=== PATIENT | female | born 1950 | race Hispanic/Latino ===

== ENCOUNTER → 2017-11-10 | Outpatient (CLI) | payer OTHER ==
[~2017-11-10] MED LIST: ALBU8.5H8 IH; ALBUMIN (HUMAN) 25% 200 ML IV SCH; ATOR10TA69 PO; BRIM5DRO4 OP; BUSP5TAB3 PO; CHOL378P PO; CHOL4PAC21 PO; CIPR-279 PO; CIPR250S5 PO; COMB5OS OU; DICL1KIT14 TP; IPRAHFA IH; LACT10SO8 PO; LATA2.5D2 OU; LEVO250T2 PO; LISI2.5T2 PO; MECL-111 PO; MECL-129 PO; ONDA4TAB10 PO; PANT40TA25 PO; PROP10TA10 PO; RIFA550T PO; ZINC220C6 PO; ZINC50TA38 PO; ZINC50TA64 PO; diclofenac 1% TP
[2017-11-10 08:29] LABS: INR 1.49 (0.85-1.15); PARTIAL THROMBOPLASTIN TIME 41.1 SEC (26.3-35.5); PROTHROMBIN TIME 15.5 SEC (9.6-11.6)
[2017-11-10 11:32] LABS: SPECIMENTYPE,BODY FLUID ASCITES
[2017-11-10 11:33] LABS: APPEARANCE BODY FLUID CLEAR (CLEAR); BODY FLUID RBC 367 /cu. mm.; BODY FLUID WBC 103 /cu. mm.; COLOR,BODY FLUID YELLOW (LT YELLOW); TOTAL VOLUME,BODY FLUID 110 mL
[2017-11-10 11:46] LABS: BF LYMPHOCYTE 49 %; BF MESOTHELIAL 35 %; BF MONOCYTE 13 %
== END | disposition home or self-care (01) ==
LOC: RAH 07:36
PROVIDERS: ATTEND Internal Medicine
DX: R18.8 Other ascites (principal); K74.60 Unspecified cirrhosis of liver; K21.9 Gastro-esophageal reflux disease without esophagitis; E11.9 Type 2 diabetes mellitus without complications; I10 Essential (primary) hypertension; E78.5 Hyperlipidemia, unspecified; Z79.01 Long term (current) use of anticoagulants; Z90.710 Acquired absence of both cervix and uterus; Z98.890 Other specified postprocedural states
CPT/HCPCS: 36415; 49083; 85610; 85730; 87071; 87205; 89051; P9046

== ENCOUNTER → 2017-11-29 | Outpatient (CLI) | payer OTHER ==
[2017-11-29 10:35] LABS: INR 1.44 (0.85-1.15); PARTIAL THROMBOPLASTIN TIME 39.2 SEC (26.3-35.5)
== END | disposition home or self-care (01) ==
LOC: RAH 09:26
PROVIDERS: ATTEND Internal Medicine
DX: R18.8 Other ascites (principal); Z79.01 Long term (current) use of anticoagulants
CPT/HCPCS: 36415; 49083; 85610; 85730; P9046

== ENCOUNTER → 2017-12-10 | Outpatient (CLI) | payer OTHER ==
[~2017-12-10] MED LIST changes: -ALBUMIN (HUMAN) 25% 200 ML IV SCH; +ALBUMIN (HUMAN) 25% 400 ML IV ONE
== END | disposition home or self-care (01) ==
LOC: RAH 08:18
PROVIDERS: ATTEND Internal Medicine
DX: R18.8 Other ascites (principal)
CPT/HCPCS: 49083; P9046

== ENCOUNTER 2017-12-20 12:28 | Emergency (ER) | payer OTHER ==
[~2017-12-20 12:28] MED LIST changes: -ALBU8.5H8 IH; -ALBUMIN (HUMAN) 25% 400 ML IV ONE; -BRIM5DRO4 OP; -CHOL378P PO; -CHOL4PAC21 PO; -CIPR-279 PO; -CIPR250S5 PO; -DICL1KIT14 TP; -LISI2.5T2 PO; -MECL-129 PO; -ONDA4TAB10 PO; -ZINC220C6 PO; -ZINC50TA64 PO
[2017-12-20 13:17] LABS: EOSINOPHILS % (AUTO) 12.7 % (0.0-8.0); HEMATOCRIT 25.9 % (36-48); LYMPHOCYTES % (AUTO) 9.9 % (21.0-51.0); MEAN CORPUSCULAR HEMOGLOBIN 33.5 pg (27.0-33.0); MEAN CORPUSCULAR HGB CONC 35.1 g/dL (32.0-36.0); MEAN CORPUSCULAR VOLUME 95.4 fL (79-99); MONOCYTES % (AUTO) 11.8 % (3.0-13.0); NEUTROPHILS % (AUTO) 63.6 % (40.0-77.0); NUCLEATED RED BLOOD CELLS 0.1 % (0.0-0.19); PLATELET COUNT (AUTO) 53 K/uL (130-400); RED BLOOD CELL COUNT(AUTO) 2.72 MIL/uL (4.00-5.50); RED CELL DISTRIBUTION WIDTH 17.4 % (11.0-15.5); WHITE BLOOD COUNT (AUTO) 2.6 K/uL (4.8-10.8)
[2017-12-20 13:19] LABS: CREATININE 2.2 mg/dL (0.5-1.5)
[2017-12-20 13:25] LABS: ALBUMIN 3.2 g/dL (3.5-5.0); BILIRUBIN,TOTAL 2.7 mg/dL (0.2-1.0)
[2017-12-20 13:34] LABS: INR 1.49 (0.85-1.15); PARTIAL THROMBOPLASTIN TIME 38.8 SEC (26.3-35.5); PROTHROMBIN TIME 15.5 SEC (9.6-11.6)
[2017-12-20 14:01] LABS: EOSINOPHILS % (MANUAL) 7 % (1-6); LYMPHOCYTES % (MANUAL) 12 % (22-44); MAN.DIFF COMMENT-IMPRESSION MANUAL DIFFERENTIAL; MONOCYTES % (MANUAL) 10 % (2-9); SEGMENTED NEUTROPHILS % 71 % (40-70)
[2017-12-20 14:02] LABS: PLATELET MORPHOLOGY COMMENT DECREASED
[2017-12-20] MEDS ORDERED: ALBUMIN (HUMAN) 25% 200 ML IV ONE (16:30)
[2017-12-20] MEDS ORDERED: ALBUMIN (HUMAN) 25% 100 ML IV ONE (17:20)
[2017-12-20] MEDS ORDERED: BENZONATATE 100 MG CAPSULE PO ONE (17:21)
== END 2017-12-20 18:34 | disposition home or self-care (01) ==
LOC: EDH 12:28
DX: R18.8 Other ascites (principal); K74.69 Other cirrhosis of liver; D61.818 Other pancytopenia; E11.22 Type 2 diabetes mellitus with diabetic chronic kidney disease; I12.9 Hypertensive chronic kidney disease with stage 1 through stage 4 chronic kidney disease, or unspecified chronic kidney disease; N18.9 Chronic kidney disease, unspecified; R79.1 Abnormal coagulation profile; Z79.4 Long term (current) use of insulin; Z88.0 Allergy status to penicillin; Z88.2 Allergy status to sulfonamides
CPT/HCPCS: 36415; 49083; 71045; 80053; 82140; 83880; 85007; 85025; 85610; 85730; 87804 ×2; 93005; 96365; 99285; P9047

== ENCOUNTER 2017-12-28 06:33 | Observation (INO) | payer OTHER ==
[~2017-12-28] VITALS: Ht 160 cm; Wt 94.3 kg
[2017-12-28 07:14] LABS: BASOPHILS % (AUTO) 2.2 % (0.0-5.0); EOSINOPHILS % (AUTO) 15.8 % (0.0-8.0); HEMATOCRIT 27.5 % (36-48); LYMPHOCYTES % (AUTO) 12.7 % (21.0-51.0); MEAN CORPUSCULAR HEMOGLOBIN 32.5 pg (27.0-33.0); MEAN CORPUSCULAR HGB CONC 34.3 g/dL (32.0-36.0); MEAN CORPUSCULAR VOLUME 94.6 fL (79-99); MONOCYTES % (AUTO) 8.7 % (3.0-13.0); NEUTROPHILS % (AUTO) 60.6 % (40.0-77.0); NUCLEATED RED BLOOD CELLS 0.1 % (0.0-0.19); PLATELET COUNT (AUTO) 67 K/uL (130-400); RED BLOOD CELL COUNT(AUTO) 2.91 MIL/uL (4.00-5.50); RED CELL DISTRIBUTION WIDTH 17.5 % (11.0-15.5); WHITE BLOOD COUNT (AUTO) 3.5 K/uL (4.8-10.8)
[2017-12-28 07:22] LABS: CREATININE 2.1 mg/dL (0.5-1.5); POTASSIUM 4.1 mmol/L (3.5-5.1)
[2017-12-28 07:28] LABS: ALBUMIN 3.3 g/dL (3.5-5.0); BILIRUBIN,TOTAL 2.5 mg/dL (0.2-1.0); TOTAL PROTEIN, SERUM 7.7 g/dL (6.0-8.3)
[2017-12-28 07:29] LABS: INR 1.37 (0.85-1.15); PARTIAL THROMBOPLASTIN TIME 35.1 SEC (26.3-35.5); PROTHROMBIN TIME 14.3 SEC (9.6-11.6)
[2017-12-28] MEDS ORDERED: ONDANSETRON HCL 4 MG/2 ML VIAL ONE (07:30)
[2017-12-28] MEDS ORDERED: MORPHINE SULFATE 4 MG/1ML SYG ONE (07:30)
[2017-12-28 08:23] LABS: PLATELET MORPHOLOGY COMMENT MARKED DECREASED
[2017-12-28] MEDS ORDERED: LEVOFLOXACIN 500 MG/D5W 100 ML 100 ML ONE (09:00)
[2017-12-28] MEDS ORDERED: METRONIDAZOLE 500MG/100ML BAG 100 ML ONE (09:01)
[2017-12-28 09:25] LABS: APPEARANCE,URINE Clear (CLEAR); BILIRUBIN,URINE Negative (NEGATIVE); COLOR,URINE Yellow (YELLOW); GLUCOSE, URINE (UA) Negative (NEGATIVE); KETONES,URINE Negative (NEGATIVE); LEUKOCYTE ESTERASE ,URINE Small (NEGATIVE); NITRATE,URINE Negative (NEGATIVE); OCCULT BLOOD,URINE Negative (NEGATIVE); PH,URINE 5.5 (5.0-8.0); PROTEIN,URINE Negative (NEGATIVE)
[2017-12-28] MEDS ORDERED: ONDANSETRON HCL 4 MG/2 ML VIAL IV PRN (09:30)
[2017-12-28] MEDS ORDERED: ACETAMINOPHEN 325 MG TAB PO PRN ×2 (09:30)
[2017-12-28] MEDS ORDERED: MAG HYDROX/AL HYDROX/SIMETH ES 30 ML SUSP UDCUP PO PRN (09:30)
[2017-12-28] MEDS ORDERED: GUAIFENESIN-DM 200/20 MG 10 ML PO PRN (09:30)
[2017-12-28] MEDS ORDERED: LACTULOSE 20 GM/30 ML UDCUP PO PRN (09:30)
[2017-12-28] MEDS ORDERED: MORPHINE SULFATE 2 MG/ML 1ML SYG IV PRN (09:30)
[2017-12-28 09:51] LABS: BACTERIA,URINE Rare /HPF (None Seen); RBC,URINE None Seen /HPF (0-1)
[2017-12-28] MEDS ORDERED: FUROSEMIDE 10 MG/ML 4ML VIAL IV SCH (12:30)
[2017-12-28] MEDS: INSULIN HUMULIN R 100 UNIT/ML 3ML SQ SCH ×3 (12:30→21:00)
[2017-12-28] MEDS ORDERED: ALBUMIN (HUMAN) 25% 200 ML IV SCH (15:15)
[2017-12-28 17:50] VITALS: BP 146/68
[2017-12-28 19:00] VITALS: BP 158/75
[2017-12-28] MEDS ORDERED: ZINC220C6 PO (19:14)
[2017-12-28] MEDS ORDERED: ONDA4TAB10 PO (19:14)
[2017-12-28] MEDS ORDERED: DiphenhydrAMINE HCL 25 MG/10 ML ELIXIR UDCUP PO PRN (22:45)
[2017-12-28] MEDS: FAMOTIDINE/PF 20 MG/2 ML VIAL IV SCH (22:51)
[2017-12-28 23:00] VITALS: BP 125/56
[2017-12-29 03:00] VITALS: BP 120/45
[2017-12-29 04:43] LABS: HEMATOCRIT 21.8 % (36-48); MEAN CORPUSCULAR HEMOGLOBIN 31.9 pg (27.0-33.0); MEAN CORPUSCULAR HGB CONC 34.1 g/dL (32.0-36.0); MEAN CORPUSCULAR VOLUME 93.6 fL (79-99); NUCLEATED RED BLOOD CELLS 0.1 % (0.0-0.19); PLATELET COUNT (AUTO) 45 K/uL (130-400); RED BLOOD CELL COUNT(AUTO) 2.33 MIL/uL (4.00-5.50); RED CELL DISTRIBUTION WIDTH 16.9 % (11.0-15.5); WHITE BLOOD COUNT (AUTO) 1.8 K/uL (4.8-10.8)
[2017-12-29 04:55] LABS: CREATININE 1.8 mg/dL (0.5-1.5); POTASSIUM 4.7 mmol/L (3.5-5.1)
[2017-12-29] MEDS: INSULIN HUMULIN R 100 UNIT/ML 3ML SQ SCH ×2 (05:59→11:30)
[2017-12-29 08:00] VITALS: BP 134/57
[2017-12-29] MEDS ORDERED: ONDANSETRON ODT 4 MG TAB PO PRN (08:45)
[2017-12-29] MEDS ORDERED: MECLIZINE HCL 25 MG TABLET PO PRN (08:45)
[2017-12-29] MEDS ORDERED: DICLOFENAC 1% TP PRN (08:45)
[2017-12-29] MEDS ORDERED: LEVOFLOXACIN 250 MG/D5W 50ML 50 ML IV SCH (09:00)
[2017-12-29] MEDS ORDERED: LACTULOSE 20 GM/30 ML UDCUP PO SCH (09:00)
[2017-12-29] MEDS ORDERED: BRIMONIDINE TARTRATE 0.2% 5 ML BOTTLE OU SCH (09:00)
[2017-12-29] MEDS ORDERED: ATORVASTATIN CALCIUM 10 MG TABLET PO SCH (09:00)
[2017-12-29] MEDS ORDERED: BUSPIRONE HCL 5 MG TABLET PO SCH (09:00)
[2017-12-29] MEDS ORDERED: RIFAXIMIN 550 MG TABLET PO SCH (09:00)
[2017-12-29] MEDS: FAMOTIDINE/PF 20 MG/2 ML VIAL IV SCH (09:26)
[2017-12-29 12:00] VITALS: BP 138/48
[2017-12-29] MEDS ORDERED: FUROSEMIDE 10 MG/ML 4ML VIAL IV SCH (12:30)
[2017-12-29 12:42] LABS: HEMATOCRIT 24.9 % (36-48)
[2017-12-29] MEDS ORDERED: LATANOPROST 2.5 ML DROPS OU SCH (21:00)
[2017-12-29] MEDS ORDERED: PROPRANOLOL HCL 10 MG TAB PO SCH (21:00)
[2017-12-29] MEDS ORDERED: TIMOLOL MALEATE 0.5% 5 ML BOTTLE OU SCH (21:00)
== END 2017-12-29 15:05 | disposition home or self-care (01) ==
LOC: EDH 06:33 → EDHIP 09:18 → 3CH 17:32
PROVIDERS: ADMIT Family Medicine; ATTEND Family Medicine
DX: K70.31 Alcoholic cirrhosis of liver with ascites (principal); I10 Essential (primary) hypertension; E11.9 Type 2 diabetes mellitus without complications; D61.818 Other pancytopenia; I25.10 Atherosclerotic heart disease of native coronary artery without angina pectoris; K80.20 Calculus of gallbladder without cholecystitis without obstruction; Z76.82 Awaiting organ transplant status
CPT/HCPCS: 36415 ×2; 49083; 76705; 80048; 80053; 81001; 82140; 82550; 82948 ×3; 83690; 84484; 85025; 85027; 85610; 85730; 93005; 96365; 96366; 96375 ×2; 96376; 99285; G0378 ×30; J1940; J1956; J2270; J2405 ×2; J3490 ×3; P9046

== ENCOUNTER 2018-01-03 18:14 | Observation (INO) | payer OTHER ==
[~2018-01-03] VITALS: Ht 157.5 cm; Wt 81.4 kg
[~2018-01-03 18:14] MED LIST changes: -LEVO250T2 PO; +ONDA4TAB10 PO; +ZINC220C6 PO; -ZINC50TA38 PO
[2018-01-03 18:54] LABS: BASOPHILS % (AUTO) 1.5 % (0.0-5.0); EOSINOPHILS % (AUTO) 14.2 % (0.0-8.0); HEMATOCRIT 26.2 % (36-48); LYMPHOCYTES % (AUTO) 12.5 % (21.0-51.0); MEAN CORPUSCULAR HEMOGLOBIN 31.9 pg (27.0-33.0); MEAN CORPUSCULAR VOLUME 93.9 fL (79-99); MONOCYTES % (AUTO) 12.2 % (3.0-13.0); NEUTROPHILS % (AUTO) 59.6 % (40.0-77.0); PLATELET COUNT (AUTO) 56 K/uL (130-400); RED BLOOD CELL COUNT(AUTO) 2.79 MIL/uL (4.00-5.50); RED CELL DISTRIBUTION WIDTH 17.1 % (11.0-15.5); WHITE BLOOD COUNT (AUTO) 2.8 K/uL (4.8-10.8)
[2018-01-03] MEDS ORDERED: ONDANSETRON HCL 4 MG/2 ML VIAL ONE (18:54)
[2018-01-03 19:09] LABS: CARBON DIOXIDE 26 mmol/L (21-32); CHLORIDE 107 mmol/L (101-111); CREATININE 2.2 mg/dL (0.5-1.5); GLOMERULAR FILTR. RATE CALC 24 mL/min (>60); GLUCOSE,RANDOM 153 mg/dL (70-105); POTASSIUM 4.6 mmol/L (3.5-5.1); SODIUM SERUM 139 mmol/L (136-145); UREA NITROGEN, BLOOD 29 mg/dL (7-18)
[2018-01-03 19:11] LABS: INR 1.49 (0.85-1.15); PROTHROMBIN TIME 15.5 SEC (9.6-11.6)
[2018-01-03 19:22] LABS: ALANINE AMINOTRANSFERASE 27 U/L (12-78); ALBUMIN 2.9 g/dL (3.5-5.0); ASPARTATE AMINOTRANSFERASE 43 U/L (10-37); BILIRUBIN,TOTAL 2.3 mg/dL (0.2-1.0); CREATINE KINASE MB < 0.5 ng/mL (0.5-3.6); CREATINE KINASE, TOTAL 66 U/L (21-232); TOTAL PROTEIN, SERUM 6.8 g/dL (6.0-8.3)
[2018-01-03 19:31] LABS: AMMONIA 95 umol/L (11-32)
[2018-01-03] MEDS ORDERED: MEROPENEM 1 GM VIAL ONE (19:36)
[2018-01-03] MEDS ORDERED: ALBUMIN (HUMAN) 25% 50 ML IV ONE (19:36)
[2018-01-03 19:43] LABS: APPEARANCE,URINE Clear (CLEAR); BILIRUBIN,URINE Negative (NEGATIVE); COLOR,URINE Yellow (YELLOW); GLUCOSE, URINE (UA) Negative (NEGATIVE); KETONES,URINE Negative (NEGATIVE); LEUKOCYTE ESTERASE ,URINE Small (NEGATIVE); NITRATE,URINE Negative (NEGATIVE); OCCULT BLOOD,URINE Negative (NEGATIVE); PROTEIN,URINE Negative (NEGATIVE); UROBILINOGEN,URINE 0.2 mg/dL (0.2-1.0)
[2018-01-03 19:52] LABS: BACTERIA,URINE Few /HPF (None Seen); RBC,URINE 0-1 /HPF (0-1); SQUAMOUS EPITHELIAL CELL,UR Few /LPF (0-2)
[2018-01-03] MEDS ORDERED: ACETAMINOPHEN EXTRA STRENGTH 500 MG TABLET ONE (20:08)
[2018-01-03 20:12] LABS: BAND NEUTROPHILS % (MANUAL) 2 % (0-2); BASOPHILS % (MANUAL) 1 % (0-2); EOSINOPHILS % (MANUAL) 14 % (1-6); LYMPHOCYTES % (MANUAL) 14 % (22-44); MAN.DIFF COMMENT-IMPRESSION MANUAL DIFFERENTIAL; MONOCYTES % (MANUAL) 8 % (2-9); SEGMENTED NEUTROPHILS % 61 % (40-70)
[2018-01-03] MEDS ORDERED: FUROSEMIDE 10 MG/ML 4ML VIAL ONE (20:40)
[2018-01-03] MEDS ORDERED: LACTULOSE 20 GM/30 ML UDCUP ONE (20:40)
[2018-01-03] MEDS ORDERED: SODIUM CHLORIDE 0.9% 1000ML 1,000 ML IV ONE (23:32)
[2018-01-03] MEDS ORDERED: FAMOTIDINE 20MG TAB 20 MG TAB ONE (23:33)
[2018-01-04] VITALS (11 sets, daily range): BP systolic 144–164; BP diastolic 63–84
[2018-01-04] MEDS: LEVOFLOXACIN 500 MG/D5W 100 ML 100 ML IV SCH (01:30)
[2018-01-04] MEDS ORDERED: POTASSIUM CHLORIDE 20MEQ/100ML 100 ML IV PRN (01:30)
[2018-01-04] MEDS ORDERED: LIDOCAINE HCL-MPF 1% 2ML VIAL IVP PRN (01:30)
[2018-01-04] MEDS ORDERED: POTASSIUM CHLORIDE 20 MEQ ERTAB PO PRN (01:30)
[2018-01-04] MEDS ORDERED: ONDANSETRON HCL 4 MG/2 ML VIAL IVP PRN (01:30)
[2018-01-04] MEDS ORDERED: MORPHINE SULFATE 2 MG/ML 1ML SYG IVP PRN ×2 (01:30)
[2018-01-04] MEDS ORDERED: DEXTROSE 50%-WATER 50 ML DISP.SYRIN IV PRN (01:30)
[2018-01-04] MEDS ORDERED: HYDRALAZINE HCL 20 MG/ML VIAL IV PRN (01:30)
[2018-01-04] MEDS ORDERED: GLUCAGON 1MG KIT 1 MG ML IM PRN (01:30)
[2018-01-04] MEDS ORDERED: POTASSIUM CHLORIDE 10% ELIXIR 20 MEQ/15 ML UDCUP PO PRN (01:30)
[2018-01-04 05:58] LABS: HEMATOCRIT 23.6 % (36-48); MEAN CORPUSCULAR HEMOGLOBIN 33.3 pg (27.0-33.0); MEAN CORPUSCULAR HGB CONC 35.8 g/dL (32.0-36.0); NUCLEATED RED BLOOD CELLS 0.1 % (0.0-0.19); PLATELET COUNT (AUTO) 49 K/uL (130-400); RED BLOOD CELL COUNT(AUTO) 2.54 MIL/uL (4.00-5.50); RED CELL DISTRIBUTION WIDTH 16.8 % (11.0-15.5); WHITE BLOOD COUNT (AUTO) 2.1 K/uL (4.8-10.8)
[2018-01-04 06:06] LABS: ALBUMIN 2.9 g/dL (3.5-5.0); BILIRUBIN,TOTAL 2.4 mg/dL (0.2-1.0); CREATININE 2.1 mg/dL (0.5-1.5); POTASSIUM 4.2 mmol/L (3.5-5.1); TOTAL PROTEIN, SERUM 6.4 g/dL (6.0-8.3)
[2018-01-04 07:30] LABS: BASOPHILS % (MANUAL) 1 % (0-2); EOSINOPHILS % (MANUAL) 9 % (1-6); LYMPHOCYTES % (MANUAL) 14 % (22-44); MAN.DIFF COMMENT-IMPRESSION MANUAL DIFFERENTIAL; MONOCYTES % (MANUAL) 13 % (2-9); SEGMENTED NEUTROPHILS % 63 % (40-70)
[2018-01-04] MEDS: INSULIN HUMULIN R 100 UNIT/ML 3ML SQ SCH ×4 (07:30→21:00)
[2018-01-04] MEDS: LACTULOSE 20 GM/30 ML UDCUP PO SCH ×3 (09:00→21:46)
[2018-01-04] MEDS: FAMOTIDINE 20MG TAB 20 MG TAB PO SCH ×2 (09:00→21:46)
[2018-01-04] MEDS ORDERED: LEVOFLOXACIN 500 MG/D5W 100 ML 100 ML ONE (10:27)
[2018-01-04] MEDS ORDERED: LACTULOSE 20 GM/30 ML UDCUP ONE (10:27)
[2018-01-04] MEDS ORDERED: FAMOTIDINE 20MG TAB 20 MG TAB ONE (10:28)
[2018-01-04 11:37] LABS: INR 1.58 (0.85-1.15); PARTIAL THROMBOPLASTIN TIME 41.1 SEC (26.3-35.5); PROTHROMBIN TIME 16.4 SEC (9.6-11.6)
[2018-01-04] MEDS ORDERED: ALBUMIN (HUMAN) 25% 400 ML IV SCH (13:00)
[2018-01-04] MEDS ORDERED: CHOL378P PO (14:48)
[2018-01-04] MEDS ORDERED: CIPR250S5 PO (14:48)
[2018-01-04] MEDS ORDERED: ZINC50TA64 PO (14:48)
[2018-01-04] MEDS ORDERED: COMB5OS OU (14:48)
[2018-01-04] MEDS ORDERED: DICL1KIT14 TP (14:48)
[2018-01-04] MEDS ORDERED: BRIM5DRO4 OP (14:48)
[2018-01-04] MEDS ORDERED: LATA2.5D2 OU (14:48)
[2018-01-04 15:15] LABS: SPECIMENTYPE,BODY FLUID ASCITES
[2018-01-04 15:16] LABS: APPEARANCE BODY FLUID SLIGHTLY CLOUDY (CLEAR); BODY FLUID RBC 1000 /cu. mm.; BODY FLUID WBC 28 /cu. mm.; COLOR,BODY FLUID YELLOW (LT YELLOW); TOTAL VOLUME,BODY FLUID 9000 mL
[2018-01-04 16:55] LABS: BF LYMPHOCYTE 67 %; BF MESOTHELIAL 5 %
[2018-01-04] MEDS: RIFAXIMIN 550 MG TABLET PO SCH (21:46)
[2018-01-05] VITALS: BP 148/71
[2018-01-05] MEDS: LEVOFLOXACIN 500 MG/D5W 100 ML 100 ML IV SCH (01:33)
[2018-01-05 03:33] LABS: HEMATOCRIT 21.4 % (36-48); MEAN CORPUSCULAR HEMOGLOBIN 31.9 pg (27.0-33.0); MEAN CORPUSCULAR HGB CONC 34.1 g/dL (32.0-36.0); MEAN CORPUSCULAR VOLUME 93.5 fL (79-99); PLATELET COUNT (AUTO) 40 K/uL (130-400); RED BLOOD CELL COUNT(AUTO) 2.29 MIL/uL (4.00-5.50); RED CELL DISTRIBUTION WIDTH 16.9 % (11.0-15.5); WHITE BLOOD COUNT (AUTO) 1.5 K/uL (4.8-10.8)
[2018-01-05 04:00] VITALS: BP 134/58
[2018-01-05 04:03] LABS: INR 2.09 (0.85-1.15); PROTHROMBIN TIME 21.6 SEC (9.6-11.6)
[2018-01-05 04:40] LABS: ALBUMIN 2.9 g/dL (3.5-5.0); BILIRUBIN,TOTAL 2.1 mg/dL (0.2-1.0); CREATININE 1.9 mg/dL (0.5-1.5); TOTAL PROTEIN, SERUM 5.2 g/dL (6.0-8.3)
[2018-01-05] MEDS: INSULIN HUMULIN R 100 UNIT/ML 3ML SQ SCH ×3 (06:40→16:30)
[2018-01-05 08:00] VITALS: BP 119/48
[2018-01-05] MEDS ORDERED: BUSPIRONE HCL 5 MG TABLET PO SCH (09:00)
[2018-01-05] MEDS ORDERED: LATANOPROST 2.5 ML DROPS OU SCH (09:00)
[2018-01-05] MEDS ORDERED: TIMOLOL OU SCH (09:00)
[2018-01-05] MEDS ORDERED: BRIMONIDINE TARTRATE OU SCH (09:00)
[2018-01-05] MEDS ORDERED: BRIMONIDINE TARTRATE 0.2% 5 ML BOTTLE OU SCH (09:00)
[2018-01-05] MEDS: FAMOTIDINE 20MG TAB 20 MG TAB PO SCH (10:59)
[2018-01-05] MEDS: RIFAXIMIN 550 MG TABLET PO SCH (10:59)
[2018-01-05] MEDS: LACTULOSE 20 GM/30 ML UDCUP PO SCH ×2 (10:59→14:43)
[2018-01-05 11:00] LABS: HEMATOCRIT 21.8 % (36-48)
[2018-01-05 12:00] VITALS: BP 136/63
[2018-01-05 16:00] VITALS: BP_SYST 122; BP_SYST 128; BP_DIAS 44; BP_DIAS 70
[2018-01-05] MEDS ORDERED: PROPRANOLOL HCL 10 MG TAB PO SCH (21:00)
[2018-01-05] MEDS ORDERED: ATORVASTATIN CALCIUM 10 MG TABLET PO SCH (21:00)
== END 2018-01-05 21:00 | disposition home or self-care (01) ==
LOC: EDH 18:14 → EDHIP 20:50 → 3AH 01-04 12:46
PROVIDERS: ADMIT Family Medicine; ATTEND Family Medicine
DX: K72.90 Hepatic failure, unspecified without coma (principal); E11.22 Type 2 diabetes mellitus with diabetic chronic kidney disease; I12.9 Hypertensive chronic kidney disease with stage 1 through stage 4 chronic kidney disease, or unspecified chronic kidney disease; N18.3 Chronic kidney disease, stage 3 (moderate); K74.60 Unspecified cirrhosis of liver; R18.8 Other ascites; D64.9 Anemia, unspecified; D69.6 Thrombocytopenia, unspecified; K59.00 Constipation, unspecified; F41.9 Anxiety disorder, unspecified
CPT/HCPCS: 36415 ×3; 36430 ×2; 49083; 71045; 74177; 80053 ×3; 81001; 82140 ×3; 82550; 82553; 82948 ×6; 84484; 85007; 85014; 85018; 85025 ×2; 85027; 85610 ×3; 85730 ×2; 86850; 86900; 86901; 86922 ×2; 87040; 87071; 87205; 88108; 88305; 88313; 89051; 93005; 96365; 96367; 99285; G0378 ×48; J1940; J1956 ×2; J2185; J2405; J7030; P9016 ×2; P9046; P9047

== ENCOUNTER 2018-01-26 18:29 | Observation (INO) | payer OTHER ==
[~2018-01-26] VITALS: Ht 160 cm; Wt 89.7 kg
[~2018-01-26 18:29] MED LIST changes: +BRIM5DRO4 OP; +CHOL378P PO; +CIPR250S5 PO; +DICL1KIT14 TP; -IPRAHFA IH; -ZINC220C6 PO; +ZINC50TA64 PO; -diclofenac 1% TP
[2018-01-26] MEDS ORDERED: MORPHINE SULFATE 4 MG/1ML SYG ONE (19:55)
[2018-01-26] MEDS ORDERED: ONDANSETRON HCL MDV 20ML 2 MG/ML VIAL ONE (19:56)
[2018-01-26 20:14] LABS: BASOPHILS % (AUTO) 1.1 % (0.0-5.0); EOSINOPHILS % (AUTO) 9.1 % (0.0-8.0); HEMATOCRIT 31.6 % (36-48); LYMPHOCYTES % (AUTO) 6.9 % (21.0-51.0); MEAN CORPUSCULAR HEMOGLOBIN 32.1 pg (27.0-33.0); MEAN CORPUSCULAR HGB CONC 34.4 g/dL (32.0-36.0); MEAN CORPUSCULAR VOLUME 93.4 fL (79-99); MONOCYTES % (AUTO) 6.8 % (3.0-13.0); NEUTROPHILS % (AUTO) 76.1 % (40.0-77.0); PLATELET COUNT (AUTO) 51 K/uL (130-400); RED BLOOD CELL COUNT(AUTO) 3.38 MIL/uL (4.00-5.50); RED CELL DISTRIBUTION WIDTH 18.8 % (11.0-15.5); WHITE BLOOD COUNT (AUTO) 3.4 K/uL (4.8-10.8)
[2018-01-26 20:26] LABS: POTASSIUM 4.3 mmol/L (3.5-5.1)
[2018-01-26 20:30] LABS: ALBUMIN 3.2 g/dL (3.5-5.0); BILIRUBIN,TOTAL 4.4 mg/dL (0.2-1.0); TOTAL PROTEIN, SERUM 7.3 g/dL (6.0-8.3)
[2018-01-26 20:36] LABS: PLATELET MORPHOLOGY COMMENT DECREASED
[2018-01-26 20:46] LABS: APPEARANCE,URINE Cloudy (CLEAR); BILIRUBIN,URINE Negative (NEGATIVE); COLOR,URINE Yellow (YELLOW); GLUCOSE, URINE (UA) Negative (NEGATIVE); KETONES,URINE Negative (NEGATIVE); LEUKOCYTE ESTERASE ,URINE Small (NEGATIVE); NITRATE,URINE Negative (NEGATIVE); OCCULT BLOOD,URINE Negative (NEGATIVE); PH,URINE 5.5 (5.0-8.0); PROTEIN,URINE Negative (NEGATIVE); UROBILINOGEN,URINE 0.2 mg/dL (0.2-1.0)
[2018-01-26 20:55] LABS: BACTERIA,URINE Few /HPF (None Seen); RBC,URINE None Seen /HPF (0-1); WBC,URINE 0-1 /HPF (0-1)
[2018-01-27] VITALS (10 sets, daily range): BP systolic 134–161; BP diastolic 51–96
[2018-01-27] MEDS ORDERED: POTASSIUM CHLORIDE 20 MEQ ERTAB PO PRN (01:00)
[2018-01-27] MEDS ORDERED: ACETAMINOPHEN 325 MG TAB PO PRN (01:00)
[2018-01-27] MEDS ORDERED: POTASSIUM CHLORIDE 20MEQ/100ML 100 ML IV PRN (01:00)
[2018-01-27] MEDS ORDERED: POTASSIUM CHLORIDE 10% ELIXIR 20 MEQ/15 ML UDCUP PO PRN (01:00)
[2018-01-27] MEDS ORDERED: LIDOCAINE HCL-MPF 1% 2ML VIAL IVP PRN (01:00)
[2018-01-27] MEDS ORDERED: ONDANSETRON HCL MDV 20ML 2 MG/ML VIAL IV PRN (01:00)
[2018-01-27] MEDS ORDERED: LEVOFLOXACIN 500 MG/D5W 100 ML 100 ML IV SCH (01:00)
[2018-01-27] MEDS ORDERED: LEVOFLOXACIN 500 MG/D5W 100 ML 100 ML ONE (01:04)
[2018-01-27] MEDS ORDERED: ACETAMINOPHEN 325 MG TAB ONE (01:30)
[2018-01-27] MEDS: INSULIN HUMULIN R 100 UNIT/ML 3ML SQ SCH ×2 (06:05→11:30)
[2018-01-27 06:13] LABS: INR 1.71 (0.85-1.15); PROTHROMBIN TIME 17.8 SEC (9.6-11.6)
[2018-01-27] MEDS ORDERED: ALBU8.5H8 IH (08:33)
[2018-01-27] MEDS ORDERED: LISI2.5T2 PO (08:33)
[2018-01-27] MEDS ORDERED: CIPR-279 PO (08:37)
[2018-01-27] MEDS ORDERED: CHOL4PAC21 PO (08:37)
[2018-01-27] MEDS ORDERED: MECL-129 PO (08:37)
[2018-01-27] MEDS ORDERED: PANTOPRAZOLE SODIUM 40 MG TABLET.DR PO SCH (09:00)
[2018-01-27] MEDS ORDERED: ALBUMIN (HUMAN) 25% 100 ML IV SCH (10:15)
[2018-01-27] MEDS ORDERED: ALBUTEROL SULFATE 0.083% 2.5 MG/3 ML INH IH PRN (10:30)
[2018-01-27] MEDS ORDERED: ALBUMIN (HUMAN) 25% 200 ML IV SCH (12:30)
[2018-01-27 13:46] LABS: SPECIMENTYPE,BODY FLUID PARACENTESIS
[2018-01-27 13:47] LABS: APPEARANCE BODY FLUID CLEAR (CLEAR); BODY FLUID WBC 1660 /cu. mm.; COLOR,BODY FLUID YELLOW (LT YELLOW); TOTAL VOLUME,BODY FLUID 9500 mL
[2018-01-27 13:48] LABS: BODY FLUID RBC 2350 /cu. mm.
[2018-01-27 14:11] LABS: BF LYMPHOCYTE 4 %; BF MESOTHELIAL 18 %; BF MONOCYTE 13 %
[2018-01-27] MEDS ORDERED: BRIMONIDINE TARTRATE 0.2% 5 ML BOTTLE OU SCH (21:00)
[2018-01-27] MEDS ORDERED: BUSPIRONE HCL 5 MG TABLET PO SCH (21:00)
[2018-01-27] MEDS ORDERED: LATANOPROST 2.5 ML DROPS OU SCH (21:00)
[2018-01-27] MEDS ORDERED: RIFAXIMIN 550 MG TABLET PO SCH (21:00)
[2018-01-27] MEDS ORDERED: LACTULOSE 20 GM/30 ML UDCUP PO SCH (21:00)
[2018-01-27] MEDS ORDERED: ATORVASTATIN CALCIUM 10 MG TABLET PO SCH ×2 (21:00)
[2018-01-27] MEDS ORDERED: PROPRANOLOL HCL 10 MG TAB PO SCH (21:00)
[2018-01-27] MEDS ORDERED: CHOLESTYRAMINE PACKET 4 GM PACKET PO SCH (21:00)
[2018-01-27] MEDS ORDERED: TIMOLOL MALEATE 0.5% 5 ML BOTTLE OU SCH (21:00)
[2018-01-27] MEDS ORDERED: DICLO TP SCH (21:00)
[2018-01-28] MEDS ORDERED: LISINOPRIL 2.5 MG TABLET PO SCH (09:00)
[2018-01-28] MEDS ORDERED: PANTOPRAZOLE SODIUM 40 MG TABLET.DR PO SCH (09:00)
[2018-01-28] MEDS ORDERED: LEVOFLOXACIN 500 MG TABLET PO SCH (09:00)
== END 2018-01-27 19:10 | disposition home or self-care (01) ==
LOC: EDH 18:29 → EDHIP 23:45 → 3CH 01-27 01:50
PROVIDERS: ADMIT Internal Medicine; ATTEND Internal Medicine
DX: R18.8 Other ascites (principal); K74.60 Unspecified cirrhosis of liver; N39.0 Urinary tract infection, site not specified; I25.10 Atherosclerotic heart disease of native coronary artery without angina pectoris; I12.9 Hypertensive chronic kidney disease with stage 1 through stage 4 chronic kidney disease, or unspecified chronic kidney disease; N18.9 Chronic kidney disease, unspecified; E11.22 Type 2 diabetes mellitus with diabetic chronic kidney disease; Z90.710 Acquired absence of both cervix and uterus; N17.9 Acute kidney failure, unspecified; D61.818 Other pancytopenia; I85.00 Esophageal varices without bleeding; F41.9 Anxiety disorder, unspecified
CPT/HCPCS: 36415 ×2; 49083; 71045; 74176; 80053; 81001; 82150; 82948 ×3; 83690; 85025; 85610; 87071; 87205; 87804 ×2; 89051; 93005; 96365; 99285; G0378 ×19; J1956; J2270; P9046 ×2

== ENCOUNTER → 2018-02-07 | Outpatient (CLI) | payer OTHER ==
[~2018-02-07] MED LIST changes: +ALBU8.5H8 IH; +ALBUMIN (HUMAN) 25% 200 ML IV SCH; -BRIM5DRO4 OP; -CHOL378P PO; +CHOL4PAC21 PO; +CIPR-279 PO; -CIPR250S5 PO; +LIDOCAINE HCL 1% 20 ML VIAL ONE; +LISI2.5T2 PO; -MECL-111 PO; +MECL-129 PO
[2018-02-07 13:20] LABS: INR 1.49 (0.85-1.15); PROTHROMBIN TIME 15.5 SEC (9.6-11.6)
== END | disposition home or self-care (01) ==
LOC: RAH 12:25
PROVIDERS: ATTEND Internal Medicine
DX: R18.8 Other ascites (principal); Z88.0 Allergy status to penicillin; Z88.2 Allergy status to sulfonamides; Z88.8 Allergy status to other drugs, medicaments and biological substances; Z79.01 Long term (current) use of anticoagulants
CPT/HCPCS: 36415; 49083; 85610; 85730; P9046

== ENCOUNTER → 2018-02-21 | Outpatient (CLI) | payer OTHER ==
[2018-02-21 09:24] LABS: INR 1.58 (0.85-1.15); PARTIAL THROMBOPLASTIN TIME 42.1 SEC (26.3-35.5); PROTHROMBIN TIME 16.4 SEC (9.6-11.6)
== END | disposition home or self-care (01) ==
LOC: RAH 08:23
PROVIDERS: ATTEND Internal Medicine
DX: R18.8 Other ascites (principal); K74.60 Unspecified cirrhosis of liver
CPT/HCPCS: 36415; 49083; 85610; 85730; P9046

== ENCOUNTER → 2018-03-04 | Outpatient (CLI) | payer OTHER ==
[~2018-03-04] MED LIST changes: -ALBUMIN (HUMAN) 25% 200 ML IV SCH; -LIDOCAINE HCL 1% 20 ML VIAL ONE
== END | disposition home or self-care (01) ==
LOC: RAH 14:01
PROVIDERS: ATTEND Internal Medicine
DX: Z12.31 Encounter for screening mammogram for malignant neoplasm of breast (principal)
CPT/HCPCS: 77067

== ENCOUNTER → 2018-03-08 | Outpatient (CLI) | payer OTHER | END | disposition home or self-care (01) | LOC: RAH 10:08 | PROVIDERS: ATTEND Internal Medicine | DX: G31.9 Degenerative disease of nervous system, unspecified (principal); G44.059 Short lasting unilateral neuralgiform headache with conjunctival injection and tearing (SUNCT), not intractable | CPT/HCPCS: 70450 ==

== ENCOUNTER → 2018-03-11 | Outpatient (CLI) | payer OTHER ==
[~2018-03-11] MED LIST changes: +ALBUMIN (HUMAN) 25% 200 ML IV SCH
[2018-03-11 09:12] LABS: INR 1.53 (0.85-1.15); PARTIAL THROMBOPLASTIN TIME 43.1 SEC (26.3-35.5); PROTHROMBIN TIME 15.9 SEC (9.6-11.6)
[2018-03-11 13:19] LABS: APPEARANCE BODY FLUID CLEAR (CLEAR); BODY FLUID WBC 127 /cu. mm.; COLOR,BODY FLUID YELLOW (LT YELLOW); SPECIMENTYPE,BODY FLUID ASCITES; TOTAL VOLUME,BODY FLUID 9600 mL
[2018-03-11 13:20] LABS: BODY FLUID RBC 2819 /cu. mm.
[2018-03-11 14:13] LABS: BF LYMPHOCYTE 61 %; BF MESOTHELIAL 12 %; BF MONOCYTE 14 %
== END | disposition home or self-care (01) ==
LOC: DAH 08:11
PROVIDERS: ATTEND Internal Medicine
DX: R18.8 Other ascites (principal); K74.60 Unspecified cirrhosis of liver; Z88.0 Allergy status to penicillin; Z88.2 Allergy status to sulfonamides; Z88.8 Allergy status to other drugs, medicaments and biological substances; K21.9 Gastro-esophageal reflux disease without esophagitis; E78.5 Hyperlipidemia, unspecified; Z90.710 Acquired absence of both cervix and uterus; Z98.890 Other specified postprocedural states; Z68.36 Body mass index [BMI] 36.0-36.9, adult; E11.39 Type 2 diabetes mellitus with other diabetic ophthalmic complication; H40.1132 Primary open-angle glaucoma, bilateral, moderate stage; I35.0 Nonrheumatic aortic (valve) stenosis; I45.10 Unspecified right bundle-branch block; I12.9 Hypertensive chronic kidney disease with stage 1 through stage 4 chronic kidney disease, or unspecified chronic kidney disease; E11.22 Type 2 diabetes mellitus with diabetic chronic kidney disease; N18.9 Chronic kidney disease, unspecified; Z79.84 Long term (current) use of oral hypoglycemic drugs
CPT/HCPCS: 36415; 49083; 85610; 85730; 87071; 87205; 89051; P9046

== ENCOUNTER 2018-07-27 17:31 | Observation (INO) | payer OTHER ==
[~2018-07-27] VITALS: Ht 154.9 cm; Wt 63.0 kg
[~2018-07-27 17:31] MED LIST changes: -ALBUMIN (HUMAN) 25% 200 ML IV SCH
[2018-07-27 18:35] LABS: BASOPHILS % (AUTO) 0.6 % (0.0-5.0); EOSINOPHILS % (AUTO) 0.5 % (0.0-8.0); LYMPHOCYTES % (AUTO) 0.7 % (21.0-51.0); MEAN CORPUSCULAR HEMOGLOBIN 31.4 pg (27.0-33.0); MEAN CORPUSCULAR HGB CONC 33.6 g/dL (32.0-36.0); MEAN CORPUSCULAR VOLUME 93.4 fL (79-99); MONOCYTES % (AUTO) 8.2 % (3.0-13.0); NUCLEATED RED BLOOD CELLS 0.2 % (0.0-0.19); PLATELET COUNT (AUTO) 368 K/uL (130-400); RED BLOOD CELL COUNT(AUTO) 2.24 MIL/uL (4.00-5.50); RED CELL DISTRIBUTION WIDTH 18.4 % (11.0-15.5)
[2018-07-27 18:43] LABS: HEMATOCRIT 20.9 % (36-48)
[2018-07-27 18:45] LABS: CREATININE 1.5 mg/dL (0.5-1.5); POTASSIUM 5.3 mmol/L (3.5-5.1)
[2018-07-27 18:49] LABS: INR 1.05 (0.85-1.15); PARTIAL THROMBOPLASTIN TIME 33.2 SEC (26.3-35.5)
[2018-07-27 18:55] LABS: ALBUMIN 2.8 g/dL (3.5-5.0); BILIRUBIN,TOTAL 0.3 mg/dL (0.2-1.0); TOTAL PROTEIN, SERUM 6.5 g/dL (6.0-8.3)
[2018-07-27 18:58] LABS: APPEARANCE,URINE Clear (CLEAR); BILIRUBIN,URINE Negative (NEGATIVE); COLOR,URINE Yellow (YELLOW); GLUCOSE, URINE (UA) Negative (NEGATIVE); KETONES,URINE Negative (NEGATIVE); LEUKOCYTE ESTERASE ,URINE Trace (NEGATIVE); NITRATE,URINE Negative (NEGATIVE); OCCULT BLOOD,URINE Negative (NEGATIVE); PROTEIN,URINE POS 2+ (NEGATIVE); UROBILINOGEN,URINE 0.2 mg/dL (0.2-1.0)
[2018-07-27 19:38] LABS: BACTERIA,URINE Rare /HPF (None Seen); RBC,URINE 0-1 /HPF (0-1)
[2018-07-27 19:40] LABS: SQUAMOUS EPITHELIAL CELL,UR Few /HPF (0-2)
[2018-07-27 19:42] LABS: TRANSITIONAL EPI CELLS,URINE Few /HPF (None Seen)
[2018-07-27 23:25] VITALS: BP 191/76
[2018-07-28] MEDS ORDERED: TACR1CAP18 PO (00:42)
[2018-07-28] MEDS ORDERED: MYCO250C36 PO (00:43)
[2018-07-28] MEDS ORDERED: PRED5POW11 MC (00:45)
[2018-07-28] MEDS ORDERED: PREDNISOLONE PO (00:50)
[2018-07-28] MEDS ORDERED: VALGDS450 PO (00:52)
[2018-07-28] MEDS ORDERED: ASPI-1197 PO (00:58)
[2018-07-28] MEDS ORDERED: GLIP5TAB11 PO (00:59)
[2018-07-28] MEDS ORDERED: CLONIDINE HCL 0.1 MG TABLET ONE (01:12)
[2018-07-28] MEDS ORDERED: CLONIDINE HCL 0.1 MG TABLET PO PRN (01:15)
[2018-07-28] MEDS ORDERED: HYDRALAZINE HCL 20 MG/ML VIAL IV SCH (02:45)
[2018-07-28 04:00] VITALS: BP 187/75
[2018-07-28] MEDS ORDERED: ONDANSETRON ODT 4 MG TAB PO PRN (06:30)
[2018-07-28] MEDS ORDERED: MECLIZINE HCL 25 MG TABLET PO PRN (06:30)
[2018-07-28] MEDS ORDERED: HYDRALAZINE HCL 25 MG TABLET PO PRN (07:00)
[2018-07-28 07:25] LABS: BASOPHILS % (AUTO) 0.4 % (0.0-5.0); EOSINOPHILS % (AUTO) 2.7 % (0.0-8.0); HEMATOCRIT 29.8 % (36-48); LYMPHOCYTES % (AUTO) 2.2 % (21.0-51.0); MEAN CORPUSCULAR HGB CONC 33.8 g/dL (32.0-36.0); MEAN CORPUSCULAR VOLUME 91.5 fL (79-99); MONOCYTES % (AUTO) 12.5 % (3.0-13.0); NEUTROPHILS % (AUTO) 82.2 % (40.0-77.0); PLATELET COUNT (AUTO) 233 K/uL (130-400); RED BLOOD CELL COUNT(AUTO) 3.26 MIL/uL (4.00-5.50); RED CELL DISTRIBUTION WIDTH 17.1 % (11.0-15.5)
[2018-07-28 07:30] VITALS: BP 196/59
[2018-07-28 07:37] LABS: INR 1.05 (0.85-1.15); PARTIAL THROMBOPLASTIN TIME 28.2 SEC (26.3-35.5)
[2018-07-28 07:40] LABS: ALBUMIN 2.6 g/dL (3.5-5.0); BILIRUBIN,TOTAL 0.5 mg/dL (0.2-1.0); CREATININE 1.5 mg/dL (0.5-1.5); POTASSIUM 4.8 mmol/L (3.5-5.1); TOTAL PROTEIN, SERUM 6.2 g/dL (6.0-8.3)
[2018-07-28] MEDS: TIMOLOL MALEATE 0.5% 5 ML BOTTLE OP SCH ×2 (08:42→09:10)
[2018-07-28] MEDS: BRIMONIDINE TARTRATE 0.2% 5 ML BOTTLE OU SCH ×2 (08:42→09:10)
[2018-07-28] MEDS: PANTOPRAZOLE SODIUM 40 MG TABLET.DR PO SCH ×2 (08:43→08:46)
[2018-07-28] MEDS ORDERED: LISINOPRIL 2.5 MG TABLET PO SCH (09:00)
[2018-07-28] MEDS ORDERED: **HM** DICLOFENAC GEL TP SCH (09:00)
[2018-07-28] MEDS ORDERED: LEVOFLOXACIN 500 MG TABLET PO SCH (09:00)
[2018-07-28] MEDS ORDERED: BUSPIRONE HCL 5 MG TABLET PO SCH (09:00)
[2018-07-28] MEDS ORDERED: CHOLESTYRAMINE PACKET 4 GM PACKET PO SCH (09:00)
[2018-07-28] MEDS ORDERED: RIFAXIMIN 550 MG TABLET PO SCH (09:00)
[2018-07-28] MEDS ORDERED: LACTULOSE 20 GM/30 ML UDCUP PO SCH (09:00)
[2018-07-28] MEDS ORDERED: ZINC OXIDE PO SCH (09:00)
[2018-07-28] MEDS ORDERED: SODIUM POLYSTYRENE SULFONATE 15 GM/60 ML ML PO SCH (09:00)
[2018-07-28 11:08] VITALS: BP 183/68
[2018-07-28] MEDS ORDERED: ATORVASTATIN CALCIUM 10 MG TABLET PO SCH (21:00)
[2018-07-28] MEDS ORDERED: PROPRANOLOL HCL 10 MG TAB PO SCH (21:00)
[2018-07-28] MEDS ORDERED: LATANOPROST 2.5 ML DROPS OU SCH (21:00)
== END 2018-07-28 14:30 | disposition home or self-care (01) ==
LOC: EDH 17:31 → EDHIP 19:55 → 3DH 21:59
PROVIDERS: ADMIT Hospitalist; ATTEND Hospitalist
DX: D64.9 Anemia, unspecified (principal); I25.10 Atherosclerotic heart disease of native coronary artery without angina pectoris; I10 Essential (primary) hypertension; R18.8 Other ascites; F41.9 Anxiety disorder, unspecified; E11.9 Type 2 diabetes mellitus without complications; K74.60 Unspecified cirrhosis of liver; Z80.0 Family history of malignant neoplasm of digestive organs; Z80.8 Family history of malignant neoplasm of other organs or systems; Z82.5 Family history of asthma and other chronic lower respiratory diseases; Z83.3 Family history of diabetes mellitus; Z82.0 Family history of epilepsy and other diseases of the nervous system; Z82.49 Family history of ischemic heart disease and other diseases of the circulatory system; Z82.3 Family history of stroke; Z79.84 Long term (current) use of oral hypoglycemic drugs; Z94.4 Liver transplant status; Z88.0 Allergy status to penicillin
CPT/HCPCS: 36415 ×2; 36430 ×2; 74176; 80053 ×2; 81001; 82270; 82948 ×2; 83690; 84484; 85025 ×2; 85610 ×2; 85730 ×2; 86850; 86900; 86901; 86922 ×2; 93005; 99285; G0378 ×19; J0360; P9016 ×2

== ENCOUNTER 2018-08-07 19:12 | Emergency (ER) | payer OTHER ==
[~2018-08-07 19:12] MED LIST changes: +ASPI-1197 PO; +GLIP5TAB11 PO; +MYCO250C36 PO; +PREDNISOLONE PO; +TACR1CAP18 PO; +VALGDS450 PO
[2018-08-07 19:58] LABS: BASOPHILS % (AUTO) 0.2 % (0.0-5.0); EOSINOPHILS % (AUTO) 5.1 % (0.0-8.0); HEMATOCRIT 30.6 % (36-48); LYMPHOCYTES % (AUTO) 0.8 % (21.0-51.0); MEAN CORPUSCULAR HEMOGLOBIN 30.4 pg (27.0-33.0); MEAN CORPUSCULAR HGB CONC 32.7 g/dL (32.0-36.0); MEAN CORPUSCULAR VOLUME 92.9 fL (79-99); MONOCYTES % (AUTO) 10.7 % (3.0-13.0); NEUTROPHILS % (AUTO) 83.2 % (40.0-77.0); PLATELET COUNT (AUTO) 379 K/uL (130-400); RED BLOOD CELL COUNT(AUTO) 3.29 MIL/uL (4.00-5.50); WHITE BLOOD COUNT (AUTO) 4.4 K/uL (4.8-10.8)
[2018-08-07 20:07] LABS: CREATININE 1.8 mg/dL (0.5-1.5); POTASSIUM 5.2 mmol/L (3.5-5.1)
[2018-08-07 20:16] LABS: ALBUMIN 2.8 g/dL (3.5-5.0); BILIRUBIN,TOTAL 0.6 mg/dL (0.2-1.0); TOTAL PROTEIN, SERUM 6.6 g/dL (6.0-8.3)
[2018-08-07 20:36] LABS: APPEARANCE,URINE Clear (CLEAR); BILIRUBIN,URINE Negative (NEGATIVE); COLOR,URINE Yellow (YELLOW); GLUCOSE, URINE (UA) Negative (NEGATIVE); KETONES,URINE Negative (NEGATIVE); LEUKOCYTE ESTERASE ,URINE Negative (NEGATIVE); NITRATE,URINE Negative (NEGATIVE); OCCULT BLOOD,URINE Negative (NEGATIVE); PH,URINE 5.5 (5.0-8.0); PROTEIN,URINE 300 (NEGATIVE); UROBILINOGEN,URINE 0.2 mg/dL (0.2-1.0)
[2018-08-07] MEDS ORDERED: CLONIDINE HCL 0.1 MG TABLET ONE (20:44)
[2018-08-07 20:48] LABS: BACTERIA,URINE Few /HPF (None Seen); RBC,URINE 0-1 /HPF (0-1); SQUAMOUS EPITHELIAL CELL,UR Rare /HPF (0-2); WBC,URINE 0-1 /HPF (0-1)
[2018-08-07] MEDS ORDERED: FUROSEMIDE 10 MG/ML 4ML VIAL ONE (22:47)
[2018-08-07] MEDS ORDERED: FUROSEMIDE 10 MG/ML 2ML VIAL ONE (22:48)
[2018-08-07] MEDS ORDERED: NITROGLYCERIN 1GM/1 INCH PACKET TD ONE (22:48)
== END 2018-08-08 01:02 | disposition home or self-care (01) ==
LOC: EDH 19:12
DX: I16.0 Hypertensive urgency (principal); I10 Essential (primary) hypertension; E11.9 Type 2 diabetes mellitus without complications; Z88.2 Allergy status to sulfonamides; Z88.0 Allergy status to penicillin; Z88.1 Allergy status to other antibiotic agents; Z88.8 Allergy status to other drugs, medicaments and biological substances; Z94.4 Liver transplant status; Z90.710 Acquired absence of both cervix and uterus
CPT/HCPCS: 36415; 71045; 80053; 81001; 82550; 83880; 84484; 85025; 93005; 96374; 99285; J1940 ×2

== ENCOUNTER 2019-01-28 16:28 | Emergency (ER) | payer OTHER ==
[2019-01-28 17:41] LABS: BASOPHILS % (AUTO) 0.7 % (0.0-5.0); EOSINOPHILS % (AUTO) 2.7 % (0.0-8.0); HEMATOCRIT 25.7 % (36-48); LYMPHOCYTES % (AUTO) 16.9 % (21.0-51.0); MEAN CORPUSCULAR HEMOGLOBIN 34.6 pg (27.0-33.0); MEAN CORPUSCULAR HGB CONC 34.3 g/dL (32.0-36.0); MEAN CORPUSCULAR VOLUME 101.1 fL (79-99); MONOCYTES % (AUTO) 7.4 % (3.0-13.0); NEUTROPHILS % (AUTO) 72.3 % (40.0-77.0); NUCLEATED RED BLOOD CELLS 0.1 % (0.0-0.19); PLATELET COUNT (AUTO) 293 K/uL (130-400); RED BLOOD CELL COUNT(AUTO) 2.55 MIL/uL (4.00-5.50); RED CELL DISTRIBUTION WIDTH 13.4 % (11.0-15.5); WHITE BLOOD COUNT (AUTO) 6.2 K/uL (4.8-10.8)
[2019-01-28 17:43] LABS: CREATININE 1.8 mg/dL (0.5-1.5); POTASSIUM 4.3 mmol/L (3.5-5.1)
[2019-01-28 17:48] LABS: ALBUMIN 3.4 g/dL (3.5-5.0); BILIRUBIN,TOTAL 0.5 mg/dL (0.2-1.0); TOTAL PROTEIN, SERUM 7.5 g/dL (6.0-8.3)
[2019-01-28 18:03] LABS: B-TYPE NATRIURETIC PEPTIDE 140 pg/mL (0-100)
== END 2019-01-28 18:51 | disposition home or self-care (01) ==
LOC: EDH 16:28
DX: D64.9 Anemia, unspecified (principal); R06.00 Dyspnea, unspecified; R11.2 Nausea with vomiting, unspecified; E11.9 Type 2 diabetes mellitus without complications; F41.9 Anxiety disorder, unspecified; Z88.0 Allergy status to penicillin; Z88.2 Allergy status to sulfonamides; Z88.1 Allergy status to other antibiotic agents
CPT/HCPCS: 36415; 71045; 80053; 82550; 83880; 84484; 85025; 93005

== ENCOUNTER → 2019-03-02 | Outpatient (CLI) | payer OTHER | END | disposition home or self-care (01) | LOC: RAH 12:30 | PROVIDERS: ATTEND Internal Medicine | DX: R05 Cough (principal); I70.0 Atherosclerosis of aorta; M47.815 Spondylosis without myelopathy or radiculopathy, thoracolumbar region; Z90.49 Acquired absence of other specified parts of digestive tract | CPT/HCPCS: 71046 ==

== ENCOUNTER 2019-03-09 11:27 | Observation (INO) | payer OTHER ==
[~2019-03-09] VITALS: Ht 154.9 cm; Wt 62.6 kg
[2019-03-09 12:26] LABS: BASOPHILS % (AUTO) 1.2 % (0.0-5.0); EOSINOPHILS % (AUTO) 3.7 % (0.0-8.0); LYMPHOCYTES % (AUTO) 10.1 % (21.0-51.0); MEAN CORPUSCULAR HEMOGLOBIN 33.4 pg (27.0-33.0); MEAN CORPUSCULAR HGB CONC 34.1 g/dL (32.0-36.0); MONOCYTES % (AUTO) 10.6 % (3.0-13.0); NEUTROPHILS % (AUTO) 74.4 % (40.0-77.0); PLATELET COUNT (AUTO) 408 K/uL (130-400); RED BLOOD CELL COUNT(AUTO) 2.09 MIL/uL (4.00-5.50); RED CELL DISTRIBUTION WIDTH 13.7 % (11.0-15.5); WHITE BLOOD COUNT (AUTO) 9.1 K/uL (4.8-10.8)
[2019-03-09 12:40] LABS: INR 1.04 (0.85-1.15); PARTIAL THROMBOPLASTIN TIME 31.8 SEC (26.3-35.5); PROTHROMBIN TIME 10.9 SEC (9.6-11.6)
[2019-03-09 12:43] LABS: ALBUMIN 2.5 g/dL (3.5-5.0); BILIRUBIN,TOTAL 0.3 mg/dL (0.2-1.0); HEMATOCRIT 20.5 % (36-48); TOTAL PROTEIN, SERUM 6.4 g/dL (6.0-8.3)
[2019-03-09 12:46] LABS: POTASSIUM 2.9 mmol/L (3.5-5.1)
[2019-03-09] MEDS ORDERED: POTASSIUM CHLORIDE 20 MEQ ERTAB PO ONE (12:51)
[2019-03-09] MEDS ORDERED: ACETAMINOPHEN 325 MG TAB PO PRN ×2 (13:45)
[2019-03-09] MEDS ORDERED: DIPHENHYDRAMINE HCL 25 MG CAPSULE PO SCH ×2 (13:45→20:30)
[2019-03-09] MEDS ORDERED: ONDANSETRON HCL 4 MG/2 ML VIAL IV PRN (13:45)
[2019-03-09] MEDS ORDERED: ACETAMINOPHEN 325 MG TAB PO SCH (13:45)
[2019-03-09 16:07] VITALS: BP 109/56
[2019-03-09] MEDS ORDERED: BUME1TAB12 PO (18:47)
[2019-03-09] MEDS ORDERED: TACR1CAP10 PO (18:47)
[2019-03-09] MEDS ORDERED: CARV25TA PO (18:47)
[2019-03-09] MEDS ORDERED: FLUD0.1T2 PO (18:47)
[2019-03-09] MEDS ORDERED: AEC81 PO (18:47)
[2019-03-09] MEDS ORDERED: MYCO250C7 PO (18:47)
[2019-03-09] MEDS ORDERED: NIFE30TA91 PO (18:47)
[2019-03-09] MEDS ORDERED: CHOL200074 PO (18:47)
[2019-03-09] MEDS ORDERED: PANT40TA25 PO (18:47)
[2019-03-09] MEDS ORDERED: BUSP10TA3 PO (18:47)
[2019-03-09] MEDS ORDERED: CETI10TA86 PO (18:47)
[2019-03-09] MEDS ORDERED: NIFE30TA98 PO (18:57)
[2019-03-09] MEDS ORDERED: CHOL200013 PO (18:57)
[2019-03-09 20:00] VITALS: BP 174/62
[2019-03-09] MEDS ORDERED: LATA7.5D OP (20:24)
[2019-03-09] MEDS ORDERED: BRIM5DRO OP (20:24)
[2019-03-09] MEDS: FAMOTIDINE/PF 20 MG/2 ML VIAL IV SCH (21:01)
[2019-03-09] MEDS ORDERED: SODIUM CHLORIDE 0.9% 500ML 500 ML IV ONE (21:20)
[2019-03-09] MEDS ORDERED: FERR-82 PO (23:09)
[2019-03-09] MEDS ORDERED: TACROLIMUS 1 MG CAPSULE PO SCH (23:15)
[2019-03-09] MEDS: POTASSIUM CHLORIDE 20 MEQ ERTAB PO SCH (23:21)
[2019-03-10 00:03] VITALS: BP 153/59
[2019-03-10 04:22] VITALS: BP 119/52
[2019-03-10] MEDS ORDERED: ALBUTEROL SULFATE 0.083% 2.5 MG/3 ML INH IH PRN (06:30)
[2019-03-10 07:47] VITALS: BP 172/65
[2019-03-10] MEDS ORDERED: BRIMONIDINE TARTRATE 0.2% 5 ML BOTTLE OP SCH (09:00)
[2019-03-10] MEDS ORDERED: BUMETANIDE 1 MG TAB PO SCH (09:00)
[2019-03-10] MEDS ORDERED: **HM** VIT D3 2000 UNITS PO SCH (09:00)
[2019-03-10] MEDS ORDERED: CARVEDILOL 25 MG TABLET PO SCH (09:00)
[2019-03-10] MEDS ORDERED: NIFEDIPINE ER 30 MG TAB PO SCH (09:00)
[2019-03-10] MEDS ORDERED: MYCOPHENOLATE MOFETIL 250 MG CAPSULE PO SCH (09:00)
[2019-03-10] MEDS ORDERED: CETIRIZINE HCL 5 MG TABLET PO SCH (09:00)
[2019-03-10] MEDS ORDERED: CHOLESTYRAMINE PACKET 4 GM PACKET PO SCH (09:00)
[2019-03-10] MEDS ORDERED: TACROLIMUS 1 MG CAPSULE PO SCH (09:00)
[2019-03-10] MEDS ORDERED: ASPIRIN 81 MG EC TAB PO SCH (09:00)
[2019-03-10] MEDS ORDERED: TIMOLOL MALEATE 0.5% 5 ML BOTTLE OP SCH (09:00)
[2019-03-10] MEDS ORDERED: PANTOPRAZOLE SODIUM 40 MG TABLET.DR PO SCH (09:00)
[2019-03-10] MEDS ORDERED: FLUDROCORTISONE ACETATE 0.1 MG TABLET PO SCH (09:00)
[2019-03-10] MEDS ORDERED: FERROUS SULFATE 325 MG TABLET.DR PO SCH (09:00)
[2019-03-10] MEDS ORDERED: VALGANCICLOVIR HCL 450 MG TABLET PO SCH (09:00)
[2019-03-10] MEDS: FAMOTIDINE/PF 20 MG/2 ML VIAL IV SCH (09:43)
[2019-03-10] MEDS ORDERED: POTASSIUM CHLORIDE 10MEQ/100ML 100 ML IV PRN (10:30)
[2019-03-10] MEDS ORDERED: POTASSIUM CHLORIDE 10% ELIXIR 20 MEQ/15 ML UDCUP PO PRN (10:30)
[2019-03-10] MEDS ORDERED: POTASSIUM CHLORIDE 20 MEQ ERTAB PO PRN (10:30)
[2019-03-10] MEDS ORDERED: LIDOCAINE HCL-MPF 1% 2ML VIAL IVP PRN (10:30)
[2019-03-10 10:36] LABS: BASOPHILS % (AUTO) 0.9 % (0.0-5.0); EOSINOPHILS % (AUTO) 3.4 % (0.0-8.0); HEMATOCRIT 30.9 % (36-48); LYMPHOCYTES % (AUTO) 9.9 % (21.0-51.0); MEAN CORPUSCULAR HEMOGLOBIN 33.3 pg (27.0-33.0); MEAN CORPUSCULAR VOLUME 92.6 fL (79-99); MONOCYTES % (AUTO) 11.1 % (3.0-13.0); NEUTROPHILS % (AUTO) 74.7 % (40.0-77.0); NUCLEATED RED BLOOD CELLS 0.1 % (0.0-0.19); PLATELET COUNT (AUTO) 395 K/uL (130-400); RED BLOOD CELL COUNT(AUTO) 3.34 MIL/uL (4.00-5.50); RED CELL DISTRIBUTION WIDTH 16.8 % (11.0-15.5); WHITE BLOOD COUNT (AUTO) 8.2 K/uL (4.8-10.8)
[2019-03-10 10:47] LABS: CREATININE 1.8 mg/dL (0.5-1.5); POTASSIUM 3.7 mmol/L (3.5-5.1)
[2019-03-10 11:22] VITALS: BP 186/75
[2019-03-10] MEDS: POTASSIUM CHLORIDE 20 MEQ ERTAB PO SCH (13:45)
[2019-03-10 16:04] VITALS: BP 146/59
--- NOTE | 2019-03-10 17:15 | NUR ---
Pt Discharge Pt presented with symptomatic anemia, H&H 7.0 and 20.5, and a potassium level of 2.9, s/p 2 units of PRBC, potassium also covered, H&H levels up to 11.1 and 30.9 respectively with potassium level of 3.7 after coverage, no more shortness of breath or dizziness noted prior to d/c, pt given d/c instruction, hypokalemia teachings also provided, pt verbalized understanding with d/c instruction with spouse, IV taken out, no acute distress noted, pt sent down in w/c and safely d/c home.
[2019-03-10] MEDS ORDERED: LATANOPROST 2.5 ML DROPS OU SCH (21:00)
== END 2019-03-10 17:45 | disposition home or self-care (01) ==
LOC: EDH 11:27 → INTOOBSV 13:34 → EDHIP 13:34 → OBSVTOIN 13:34 → 3BH 15:30
PROVIDERS: ADMIT Internal Medicine; ATTEND Internal Medicine
DX: D64.9 Anemia, unspecified (principal); E11.9 Type 2 diabetes mellitus without complications; E87.6 Hypokalemia; I10 Essential (primary) hypertension; K74.69 Other cirrhosis of liver; F41.9 Anxiety disorder, unspecified; Z90.710 Acquired absence of both cervix and uterus; Z94.4 Liver transplant status; Z80.0 Family history of malignant neoplasm of digestive organs; Z80.8 Family history of malignant neoplasm of other organs or systems; Z82.0 Family history of epilepsy and other diseases of the nervous system; Z82.3 Family history of stroke; Z82.49 Family history of ischemic heart disease and other diseases of the circulatory system; Z83.3 Family history of diabetes mellitus; Z88.0 Allergy status to penicillin; Z88.2 Allergy status to sulfonamides; Z79.899 Other long term (current) drug therapy
CPT/HCPCS: 36415 ×2; 36430 ×2; 80048; 80053; 82270; 82948 ×4; 85025 ×2; 85610; 85730; 86850; 86900; 86901; 86922; 94664; 96374; 96376; 99284; A4600; G0378 ×28; J3490 ×3; J7040; J7517 ×2; P9016 ×2; Q0163 ×2

== ENCOUNTER → 2019-05-25 | Outpatient (CLI) | payer OTHER ==
[~2019-05-25] MED LIST changes: +AEC81 PO; -ASPI-1197 PO; -ATOR10TA69 PO; +BRIM5DRO OP; +BUME1TAB6 PO; -BUSP5TAB3 PO; +CARV25TA PO; +CETI10TA86 PO; +CHOL200074 PO; -CIPR-279 PO; -COMB5OS OU; -DICL1KIT14 TP; +FERR-82 PO; +FLUD0.1T2 PO; -GLIP5TAB11 PO; -LACT10SO8 PO; -LATA2.5D2 OU; +LATA7.5D OP; -LISI2.5T2 PO; -MECL-129 PO; +NIFE30TA98 PO; -ONDA4TAB10 PO; -PREDNISOLONE PO; -PROP10TA10 PO; -RIFA550T PO; +TACR1CAP10 PO; -ZINC50TA64 PO
== END | disposition home or self-care (01) ==
LOC: SHCH 13:28
PROVIDERS: ATTEND Internal Medicine Cardiovascular Disease
DX: I65.23 Occlusion and stenosis of bilateral carotid arteries (principal); I08.3 Combined rheumatic disorders of mitral, aortic and tricuspid valves
CPT/HCPCS: 93306; 93880

== ENCOUNTER → 2019-05-29 | Outpatient (CLI) | payer OTHER ==
[~2019-05-29] VITALS: Ht 154.9 cm; Wt 61.2 kg
[~2019-05-29] MED LIST changes: +REGADENOSON 0.4 MG/5 ML PF SYG IVP SCH
== END | disposition home or self-care (01) ==
LOC: SHCH 08:28
PROVIDERS: ATTEND Internal Medicine Cardiovascular Disease
DX: I25.89 Other forms of chronic ischemic heart disease (principal); I10 Essential (primary) hypertension
CPT/HCPCS: 78452; 93017; 96374; A9500 ×2; J2785

== ENCOUNTER 2019-06-03 22:10 | Emergency (ER) | payer OTHER ==
[~2019-06-03 22:10] MED LIST changes: -REGADENOSON 0.4 MG/5 ML PF SYG IVP SCH
[2019-06-03] MEDS ORDERED: HYDRALAZINE HCL 20 MG/ML VIAL ONE (23:44)
[2019-06-04 00:01] LABS: APPEARANCE,URINE Clear (CLEAR); BILIRUBIN,URINE Negative (NEGATIVE); COLOR,URINE Yellow (YELLOW); GLUCOSE, URINE (UA) TRACE mg/dL (NEGATIVE); KETONES,URINE Negative (NEGATIVE); LEUKOCYTE ESTERASE ,URINE Trace (NEGATIVE); NITRATE,URINE Negative (NEGATIVE); OCCULT BLOOD,URINE Negative (NEGATIVE); PROTEIN,URINE >=1000 mg/dL (NEGATIVE); UROBILINOGEN,URINE 0.2 mg/dL (0.2-1.0)
[2019-06-04 00:02] LABS: BASOPHILS % (AUTO) 1.5 % (0.0-5.0); EOSINOPHILS % (AUTO) 5.3 % (0.0-8.0); HEMATOCRIT 23.3 % (36-48); LYMPHOCYTES % (AUTO) 19.4 % (21.0-51.0); MEAN CORPUSCULAR HEMOGLOBIN 31.5 pg (27.0-33.0); MEAN CORPUSCULAR HGB CONC 33.9 g/dL (32.0-36.0); MEAN CORPUSCULAR VOLUME 92.8 fL (79-99); MONOCYTES % (AUTO) 13.9 % (3.0-13.0); NEUTROPHILS % (AUTO) 59.9 % (40.0-77.0); NUCLEATED RED BLOOD CELLS 0.1 % (0.0-0.19); PLATELET COUNT (AUTO) 341 K/uL (130-400); RED BLOOD CELL COUNT(AUTO) 2.51 MIL/uL (4.00-5.50); RED CELL DISTRIBUTION WIDTH 16.2 % (11.0-15.5)
[2019-06-04 00:08] LABS: CREATININE 2.7 mg/dL (0.5-1.5); POTASSIUM 3.9 mmol/L (3.5-5.1)
[2019-06-04 00:13] LABS: INR 0.99 (0.85-1.15); PARTIAL THROMBOPLASTIN TIME 30.2 SEC (26.3-35.5); PROTHROMBIN TIME 10.4 SEC (9.6-11.6)
[2019-06-04 00:17] LABS: ALBUMIN 2.4 g/dL (3.5-5.0); BILIRUBIN,TOTAL 0.5 mg/dL (0.2-1.0); TOTAL PROTEIN, SERUM 5.9 g/dL (6.0-8.3)
[2019-06-04 00:20] LABS: BACTERIA,URINE Rare /HPF (None Seen); RBC,URINE 0-1 /HPF (0-1); SQUAMOUS EPITHELIAL CELL,UR 0-2 /HPF (0-2); WBC,URINE 0-1 /HPF (0-1)
[2019-06-04] MEDS ORDERED: LIDOCAINE 5% TOPICAL PATCH TP ONE (02:19)
[2019-06-04] MEDS ORDERED: ORPHENADRINE CITRATE 30 MG/ML ML ONE (02:19)
== END 2019-06-04 03:25 | disposition home or self-care (01) ==
LOC: EDH 22:10
DX: G44.209 Tension-type headache, unspecified, not intractable (principal); I10 Essential (primary) hypertension; M62.838 Other muscle spasm; E11.9 Type 2 diabetes mellitus without complications; F41.9 Anxiety disorder, unspecified; Z88.1 Allergy status to other antibiotic agents; Z88.0 Allergy status to penicillin; Z88.2 Allergy status to sulfonamides; Z79.899 Other long term (current) drug therapy; Z94.4 Liver transplant status
CPT/HCPCS: 36415; 80053; 81001; 84484; 85025; 85610; 85730; 93005 ×2; 96365; 96366; 96375; 99285; J0360; J2360

== ENCOUNTER → 2019-06-14 | Outpatient (CLI) | payer OTHER | END | disposition home or self-care (01) | LOC: RAH 07:48 | PROVIDERS: ATTEND Internal Medicine | DX: N18.9 Chronic kidney disease, unspecified (principal); N32.89 Other specified disorders of bladder | CPT/HCPCS: 76770 ==

== ENCOUNTER 2019-07-11 15:00 | Inpatient (IN) | payer OTHER | END 2019-07-15 15:49 | disposition home or self-care (01) | LOC: EDH 15:00 → EDHIP 18:27 → 3BH 23:45 | DX: A41.9 Sepsis, unspecified organism (principal); J18.9 Pneumonia, unspecified organism; Z94.4 Liver transplant status; Q89.01 Asplenia (congenital); N17.9 Acute kidney failure, unspecified; N39.0 Urinary tract infection, site not specified; R18.8 Other ascites; D64.9 Anemia, unspecified; K74.60 Unspecified cirrhosis of liver ==

== ENCOUNTER 2019-08-22 19:40 | Inpatient (IN) | payer OTHER ==
[~2019-08-22] VITALS: Ht 154.9 cm; Wt 59.6 kg
[~2019-08-22 19:40] MED LIST changes: -ALBU8.5H8 IH; +BIOT5000 PO; +BUME0.5T4 PO; -BUME1TAB6 PO; +BUSP10TA3 PO; -CETI10TA86 PO; -CHOL4PAC21 PO; +CLON0.2T PO; -FLUD0.1T2 PO; +GABA-529 PO; +LOSA50TA64 PO; -NIFE30TA98 PO; +ROSU10TA28 PO; -TACR1CAP18 PO; -VALGDS450 PO
[2019-08-22 20:23] LABS: BASOPHILS % (AUTO) 1.1 % (0.0-5.0); EOSINOPHILS % (AUTO) 4.8 % (0.0-8.0); HEMATOCRIT 22.6 % (36-48); LYMPHOCYTES % (AUTO) 15.5 % (21.0-51.0); MEAN CORPUSCULAR HEMOGLOBIN 32.2 pg (27.0-33.0); MEAN CORPUSCULAR HGB CONC 33.1 g/dL (32.0-36.0); MEAN CORPUSCULAR VOLUME 97.2 fL (79-99); MONOCYTES % (AUTO) 15.3 % (3.0-13.0); NEUTROPHILS % (AUTO) 63.3 % (40.0-77.0); PLATELET COUNT (AUTO) 254 K/uL (130-400); RED BLOOD CELL COUNT(AUTO) 2.32 MIL/uL (4.00-5.50); RED CELL DISTRIBUTION WIDTH 15.3 % (11.0-15.5); WHITE BLOOD COUNT (AUTO) 4.6 K/uL (4.8-10.8)
[2019-08-22 20:41] LABS: INR 0.98 (0.85-1.15); PARTIAL THROMBOPLASTIN TIME 26.6 SEC (26.3-35.5); PROTHROMBIN TIME 10.3 SEC (9.6-11.6)
[2019-08-22 20:44] LABS: BILIRUBIN,DIRECT 0.1 mg/dL (0.0-0.3); BILIRUBIN,TOTAL 0.4 mg/dL (0.2-1.0); CREATININE 2.7 mg/dL (0.5-1.5); TOTAL PROTEIN, SERUM 6.3 g/dL (6.0-8.3)
[2019-08-22 20:53] LABS: POTASSIUM 6.1 mmol/L (3.5-5.1)
[2019-08-22] MEDS ORDERED: SODIUM BICARB 50MEQ 50ML VIAL ONE (23:01)
[2019-08-22] MEDS ORDERED: DEXTROSE 50%-WATER 50 ML DISP.SYRIN IV ONE (23:02)
[2019-08-22] MEDS ORDERED: CALCIUM GLUCONATE 1 GM/10 ML VIAL IV ONE (23:02)
[2019-08-22] MEDS ORDERED: INSULIN HUMULIN R 100 UNIT/ML 3ML ONE (23:02)
[2019-08-22] MEDS ORDERED: SODIUM CHLORIDE 0.9% 50 ML IV ONE (23:03)
[2019-08-22] MEDS ORDERED: SODIUM CHLORIDE 0.9% 100 ML IV ONE (23:03)
[2019-08-22] MEDS ORDERED: ONDANSETRON HCL 4 MG/2 ML VIAL IV PRN (23:30)
[2019-08-22] MEDS ORDERED: LACTULOSE 20 GM/30 ML UDCUP PO PRN (23:30)
[2019-08-22] MEDS ORDERED: SODIUM CHLORIDE 0.9% 1000ML 1,000 ML IV SCH (23:30)
[2019-08-23 00:34] VITALS: BP 152/68
[2019-08-23] MEDS ORDERED: DEXTROSE 50%-WATER 50 ML DISP.SYRIN IV ONE (00:43)
--- NOTE | 2019-08-23 00:45 | NUR ---
PT DIAPHORETIC PT DIAPHORETIC AND STATES SHE FEELS WEIRD. BS CHECK AT 40. MEDICATED WITH D50 PER MDS ORDERS
[2019-08-23] MEDS ORDERED: DEXTROSE 50%-WATER 50 ML DISP.SYRIN IV PRN (01:00)
[2019-08-23] MEDS ORDERED: GLUCAGON 1MG KIT 1 MG ML IM PRN (01:00)
[2019-08-23] MEDS ORDERED: NIFE30TA98 PO (01:04)
[2019-08-23 03:00] VITALS: BP 180/71
[2019-08-23 05:32] LABS: BASOPHILS % (AUTO) 1.1 % (0.0-5.0); EOSINOPHILS % (AUTO) 4.1 % (0.0-8.0); HEMATOCRIT 22.7 % (36-48); LYMPHOCYTES % (AUTO) 12.7 % (21.0-51.0); MEAN CORPUSCULAR HEMOGLOBIN 32.3 pg (27.0-33.0); MEAN CORPUSCULAR HGB CONC 33.7 g/dL (32.0-36.0); MEAN CORPUSCULAR VOLUME 96.1 fL (79-99); MONOCYTES % (AUTO) 13.2 % (3.0-13.0); NEUTROPHILS % (AUTO) 68.9 % (40.0-77.0); NUCLEATED RED BLOOD CELLS 0.1 % (0.0-0.19); PLATELET COUNT (AUTO) 276 K/uL (130-400); RED BLOOD CELL COUNT(AUTO) 2.36 MIL/uL (4.00-5.50); WHITE BLOOD COUNT (AUTO) 5.1 K/uL (4.8-10.8)
[2019-08-23 05:42] LABS: CREATININE 2.7 mg/dL (0.5-1.5); POTASSIUM 5.3 mmol/L (3.5-5.1)
[2019-08-23] MEDS: INSULIN HUMULIN R 100 UNIT/ML 3ML SQ SCH ×4 (07:30→21:00)
[2019-08-23] MEDS ORDERED: SODIUM POLYSTYRENE SULFONATE 15 GM/60 ML ML RC SCH (08:00)
[2019-08-23] MEDS: TACROLIMUS 1 MG CAPSULE PO SCH ×2 (08:00→21:00)
[2019-08-23 08:16] VITALS: BP 185/77
[2019-08-23] MEDS: CARVEDILOL 25 MG TABLET PO SCH ×2 (09:00→22:07)
[2019-08-23] MEDS: CLONIDINE HCL 0.2 MG TABLET PO SCH ×2 (09:00→22:06)
[2019-08-23] MEDS: BUSPIRONE HCL 5 MG TABLET PO SCH ×2 (09:00→22:05)
[2019-08-23] MEDS: FERROUS SULFATE 325 MG TABLET.DR PO SCH (09:00)
[2019-08-23] MEDS: ASPIRIN 81 MG EC TAB PO SCH (09:00)
[2019-08-23] MEDS: NIFEDIPINE ER 30 MG TAB PO SCH ×2 (09:00→22:05)
[2019-08-23] MEDS: BUMETANIDE 1 MG TAB PO SCH (09:00)
[2019-08-23] MEDS: FAMOTIDINE 20MG TAB 20 MG TAB PO SCH (09:00)
[2019-08-23] MEDS: BIOTIN 5000 MCG PO SCH (09:00)
[2019-08-23] MEDS: TIMOLOL MALEATE 0.5% 5 ML BOTTLE OP SCH ×2 (09:00→21:00)
[2019-08-23] MEDS: BRIMONIDINE TARTRATE 0.2% 5 ML BOTTLE OP SCH ×2 (09:00→21:00)
[2019-08-23] MEDS: **HM** VIT D3 2000 UNITS PO SCH (09:00)
[2019-08-23] MEDS: MYCOPHENOLATE MOFETIL 250 MG CAPSULE PO SCH ×2 (09:00→22:06)
[2019-08-23 09:29] LABS: % IRON SATURATION 67.6 % (22-44)
--- NOTE | 2019-08-23 10:01 | NUR ---
MEDICATIONS ALREADY ADMINISTERED OF PATIENT EXPLAINED THAT HE ADMINISTERED ALL MORNING MEDS TO PT OUT OF HABIT. THIS NURSE EXPLAINED TO TO NOT ADMINISTER ANYMORE FOR THE REST OF THE STAY. VERBALIZED UNDERSTANDING.
--- NOTE | 2019-08-23 11:35 | NUR ---
DCP CM met with pt discussed dc plans. Pt is semi-independent prior to admission, lives at home w/spouse, daughter lives close by. Pt has a provider 28.5hrs/wk, [facility] visits 1x/month, adan. Denies any other equipments/services. Feels safe to go back home, spouse and daughter able to assist with transportation and needs as necessary. DC plan to home once stable. CM to cont to follow up. Addendum: 08/23/19 at 1139 by ROSARIO NOBLE LVN CM Amended: Links added.
[2019-08-23 12:13] VITALS: BP 168/65
[2019-08-23 16:43] VITALS: BP 166/67
[2019-08-23 19:05] VITALS: BP 159/47
[2019-08-23] MEDS ORDERED: LATANOPROST 2.5 ML DROPS OU SCH (21:00)
[2019-08-23] MEDS ORDERED: ATORVASTATIN CALCIUM 20 MG TABLET PO SCH (21:00)
[2019-08-24] VITALS: BP 121/53
[2019-08-24 04:05] VITALS: BP 116/52
[2019-08-24 05:59] LABS: HEMATOCRIT 22.5 % (36-48); MEAN CORPUSCULAR HEMOGLOBIN 32.5 pg (27.0-33.0); MEAN CORPUSCULAR HGB CONC 33.5 g/dL (32.0-36.0); MEAN CORPUSCULAR VOLUME 96.8 fL (79-99); PLATELET COUNT (AUTO) 268 K/uL (130-400); RED BLOOD CELL COUNT(AUTO) 2.33 MIL/uL (4.00-5.50); RED CELL DISTRIBUTION WIDTH 15.1 % (11.0-15.5); WHITE BLOOD COUNT (AUTO) 6.9 K/uL (4.8-10.8)
[2019-08-24 06:05] LABS: CREATININE 2.6 mg/dL (0.5-1.5); POTASSIUM 4.5 mmol/L (3.5-5.1)
[2019-08-24] MEDS: INSULIN HUMULIN R 100 UNIT/ML 3ML SQ SCH ×2 (06:15→11:30)
[2019-08-24 07:00] VITALS: BP 128/62
[2019-08-24] MEDS: BUMETANIDE 1 MG TAB PO SCH (09:46)
[2019-08-24] MEDS: BUSPIRONE HCL 5 MG TABLET PO SCH (09:46)
[2019-08-24] MEDS: TACROLIMUS 1 MG CAPSULE PO SCH (09:46)
[2019-08-24] MEDS: NIFEDIPINE ER 30 MG TAB PO SCH (09:47)
[2019-08-24] MEDS: MYCOPHENOLATE MOFETIL 250 MG CAPSULE PO SCH (09:47)
[2019-08-24] MEDS: CARVEDILOL 25 MG TABLET PO SCH (09:47)
[2019-08-24] MEDS: **HM** VIT D3 2000 UNITS PO SCH (09:48)
[2019-08-24] MEDS: BIOTIN 5000 MCG PO SCH (09:48)
[2019-08-24] MEDS: FAMOTIDINE 20MG TAB 20 MG TAB PO SCH (09:48)
[2019-08-24] MEDS: BRIMONIDINE TARTRATE 0.2% 5 ML BOTTLE OP SCH (09:48)
[2019-08-24] MEDS: ASPIRIN 81 MG EC TAB PO SCH (09:48)
[2019-08-24] MEDS: CLONIDINE HCL 0.2 MG TABLET PO SCH (09:48)
[2019-08-24] MEDS: TIMOLOL MALEATE 0.5% 5 ML BOTTLE OP SCH (09:48)
[2019-08-24] MEDS: FERROUS SULFATE 325 MG TABLET.DR PO SCH (09:48)
[2019-08-24 11:00] VITALS: BP 125/51
== END 2019-08-24 14:00 | disposition home or self-care (01) | DRG 641 ==
LOC: EDH 19:40 → EDHIP 23:30 → OBSVTOIN 23:30 → 3CH 08-23 00:07
PROVIDERS: ADMIT Internal Medicine; ATTEND Internal Medicine
DX: E87.5 Hyperkalemia (principal); Z94.4 Liver transplant status; N18.9 Chronic kidney disease, unspecified; I12.9 Hypertensive chronic kidney disease with stage 1 through stage 4 chronic kidney disease, or unspecified chronic kidney disease; E11.22 Type 2 diabetes mellitus with diabetic chronic kidney disease; D64.9 Anemia, unspecified; K74.60 Unspecified cirrhosis of liver; Z80.0 Family history of malignant neoplasm of digestive organs; Z80.8 Family history of malignant neoplasm of other organs or systems; Z82.0 Family history of epilepsy and other diseases of the nervous system; Z82.3 Family history of stroke; Z82.49 Family history of ischemic heart disease and other diseases of the circulatory system; Z82.5 Family history of asthma and other chronic lower respiratory diseases; Z83.3 Family history of diabetes mellitus; Z90.710 Acquired absence of both cervix and uterus; Z88.5 Allergy status to narcotic agent; Z88.0 Allergy status to penicillin; Z88.2 Allergy status to sulfonamides
CPT/HCPCS: 36415; 80048; 80076; 82270; 82550; 82728; 82948; 83540; 83550; 84484; 85025; 85027; 85610; 85730; 93005; G0378; J0610; J1815; J3490; J7070; J7507; J7517

== ENCOUNTER 2019-09-27 22:36 | Observation (INO) | payer OTHER ==
[~2019-09-27] VITALS: Ht 154.9 cm; Wt 65.9 kg
[~2019-09-27 22:36] MED LIST changes: -GABA-529 PO; -LOSA50TA64 PO; +NIFE30TA98 PO
[2019-09-27 23:54] LABS: BASOPHILS % (AUTO) 0.3 % (0.0-5.0); EOSINOPHILS % (AUTO) 4.9 % (0.0-8.0); LYMPHOCYTES % (AUTO) 15.3 % (21.0-51.0); MEAN CORPUSCULAR HEMOGLOBIN 32.8 pg (27.0-33.0); MEAN CORPUSCULAR HGB CONC 34.2 g/dL (32.0-36.0); MEAN CORPUSCULAR VOLUME 96.1 fL (79-99); MONOCYTES % (AUTO) 11.2 % (3.0-13.0); NEUTROPHILS % (AUTO) 68.3 % (40.0-77.0); NUCLEATED RED BLOOD CELLS 0.1 % (0.0-0.19); PLATELET COUNT (AUTO) 314 K/uL (130-400); RED BLOOD CELL COUNT(AUTO) 1.95 MIL/uL (4.00-5.50); RED CELL DISTRIBUTION WIDTH 15.2 % (11.0-15.5); WHITE BLOOD COUNT (AUTO) 5.2 K/uL (4.8-10.8)
[2019-09-28 00:01] LABS: HEMATOCRIT 18.7 % (36-48)
[2019-09-28 00:04] LABS: CREATININE 2.7 mg/dL (0.5-1.5); POTASSIUM 3.5 mmol/L (3.5-5.1)
[2019-09-28 00:08] LABS: INR 1.04 (0.85-1.15); PARTIAL THROMBOPLASTIN TIME 23.7 SEC (26.3-35.5); PROTHROMBIN TIME 10.7 SEC (9.6-11.6)
[2019-09-28 00:09] LABS: ALBUMIN 2.8 g/dL (3.5-5.0); BILIRUBIN,TOTAL 0.4 mg/dL (0.2-1.0); TOTAL PROTEIN, SERUM 6.5 g/dL (6.0-8.3)
[2019-09-28 00:12] LABS: APPEARANCE,URINE Clear (CLEAR); BILIRUBIN,URINE Negative (NEGATIVE); COLOR,URINE Yellow (YELLOW); GLUCOSE, URINE (UA) Negative (NEGATIVE); KETONES,URINE Negative (NEGATIVE); LEUKOCYTE ESTERASE ,URINE Negative (NEGATIVE); NITRATE,URINE Negative (NEGATIVE); OCCULT BLOOD,URINE Negative (NEGATIVE); PROTEIN,URINE >=1000 mg/dL (NEGATIVE); UROBILINOGEN,URINE 0.2 mg/dL (0.2-1.0)
[2019-09-28 00:29] LABS: BACTERIA,URINE Rare /HPF (None Seen); RBC,URINE None Seen /HPF (0-1); SQUAMOUS EPITHELIAL CELL,UR 0-2 /HPF (0-2); WBC,URINE 0-1 /HPF (0-1)
[2019-09-28] MEDS ORDERED: POTASSIUM CHLORIDE 20 MEQ ERTAB PO SCH (02:45)
[2019-09-28] MEDS ORDERED: POTASSIUM CHLORIDE 20 MEQ ERTAB PO ONE (03:13)
[2019-09-28 04:00] VITALS: BP 138/61
[2019-09-28] MEDS ORDERED: SODI650T PO (05:42)
[2019-09-28 07:47] VITALS: BP 140/66
[2019-09-28] MEDS: CLONIDINE HCL 0.2 MG TABLET PO SCH ×2 (09:00→20:21)
[2019-09-28] MEDS: NIFEDIPINE ER 30 MG TAB PO SCH ×3 (09:00→20:21)
[2019-09-28] MEDS: ***HM***(Brimonidine Tartrate/Timolol (Combigan Eye Drops) 5 ML) OP SCH ×2 (09:00→20:21)
[2019-09-28] MEDS ORDERED: IRON SUCROSE COMPLEX 100 MG in SODIUM CHLORIDE 0.9% 50 ML IV ONE (09:00)
[2019-09-28] MEDS: BIOTIN 5000 MCG PO SCH (09:00)
[2019-09-28] MEDS: ASPIRIN 81 MG EC TAB PO SCH ×2 (09:00→10:05)
[2019-09-28 09:24] LABS: BASOPHILS % (AUTO) 1.2 % (0.0-5.0); HEMATOCRIT 24.8 % (36-48); LYMPHOCYTES % (AUTO) 9.8 % (21.0-51.0); MEAN CORPUSCULAR HEMOGLOBIN 31.5 pg (27.0-33.0); MEAN CORPUSCULAR HGB CONC 33.7 g/dL (32.0-36.0); MEAN CORPUSCULAR VOLUME 93.6 fL (79-99); MONOCYTES % (AUTO) 9.5 % (3.0-13.0); NEUTROPHILS % (AUTO) 75.5 % (40.0-77.0); NUCLEATED RED BLOOD CELLS 0.1 % (0.0-0.19); PLATELET COUNT (AUTO) 338 K/uL (130-400); RED BLOOD CELL COUNT(AUTO) 2.65 MIL/uL (4.00-5.50); RED CELL DISTRIBUTION WIDTH 16.1 % (11.0-15.5); WHITE BLOOD COUNT (AUTO) 6.5 K/uL (4.8-10.8)
[2019-09-28] MEDS: PANTOPRAZOLE SODIUM 40 MG TABLET.DR PO SCH (09:25)
[2019-09-28 09:43] LABS: BILIRUBIN,TOTAL 0.7 mg/dL (0.2-1.0); CREATININE 2.6 mg/dL (0.5-1.5); MAGNESIUM 0.8 mg/dL (1.80-2.40); POTASSIUM 3.7 mmol/L (3.5-5.1); TOTAL PROTEIN, SERUM 6.8 g/dL (6.0-8.3)
[2019-09-28] MEDS: FAMOTIDINE/PF 20 MG/2 ML VIAL IV SCH (10:01)
[2019-09-28] MEDS: MYCOPHENOLATE MOFETIL 250 MG CAPSULE PO SCH ×2 (10:03→20:19)
[2019-09-28] MEDS: FERROUS SULFATE 325 MG TABLET.DR PO SCH (10:04)
[2019-09-28] MEDS: BUSPIRONE HCL 5 MG TABLET PO SCH ×2 (10:04→20:20)
[2019-09-28] MEDS: SODIUM BICARBONATE 650 MG TAB PO SCH ×3 (10:05→20:20)
[2019-09-28] MEDS: BUMETANIDE 1 MG TAB PO SCH (10:05)
[2019-09-28] MEDS: TACROLIMUS 1 MG CAPSULE PO SCH (10:07)
[2019-09-28] MEDS: CARVEDILOL 25 MG TABLET PO SCH ×2 (10:08→20:21)
[2019-09-28 11:24] VITALS: BP 190/76
--- NOTE | 2019-09-28 11:54 | NUR ---
CHRONIC ANEMIA- CHART REVIEWED REVIEWED PT'S ANEMIA OVER SEVERAL ADMISSIONS. NOTES SHOW THAT PT HAS IRON PANEL DONE ONE MONTH AGO. TRANSFUSION REQUIRED THIS ADMISSION. CALL TO RE: POSSIBLE HEMATOLOGY CONSULT, TO SET UP OUT PATIENT FOLLOW UP- TRANSFUSIONS IN FUTURE COULD BE GIVEN AT [facility]? [facility] OCCULT BLOOD NEGATIVE [facility] CALL[facility] IN BY [facility]
--- NOTE | 2019-09-28 13:49 | NUR ---
DC PLAN PER PATIENT, IS INDEPENDENT, LIVES WITH SPOUSE, HAS PROVIDER WEDNESDAY THRU WEDNESDAY BUT UNABLE TO REMEMBER AMOUNT OF DAILY HOURS, HAS 2 ROLLING WALKERS, AND FEELS SAFE TO RETURN HOME. Addendum: 09/28/19 at 1350 by TAMARA LINARES RN CM Amended: Links added.
--- NOTE | 2019-09-28 15:10 | NUR ---
RD NOTIFICATION DIET: RENAL NON DIALYSIS. PO INTAKE POOR 25% AND HAS POOR APPETITE. LBM: 09/27. NO COMPLAINTS OF N/V/C/D AT THIS TIME. NO DIFFICULTY CHEWING OR SWALLOWING FOOD/ LIQUIDS. NO EDEMA, SKIN INTACT NOTED. RD RECOMMENDS CONTINUE CURRENT DIET RECOMMEND B12 LAB DRAW FOR POSSIBLE VITAMIN B12 DEFICIENCY OFFER GLUCERNA TID MONITOR CONCERNING NUTRITION RELATED LABS (>20 FOLIC ACID, RBC 2.65, HGB 8.3, HCT 24.8) RD WILL CONTINUE TO MONITOR AND FOLLOW UP NEEDED, THANK YOU. Addendum: 09/28/19 at [address] Amended: Links added.
[2019-09-28 16:00] VITALS: BP 195/83
[2019-09-28] MEDS ORDERED: HYDRALAZINE HCL 20 MG/ML VIAL IV PRN (16:00)
[2019-09-28 20:00] VITALS: BP 188/77
[2019-09-28] MEDS ORDERED: ATORVASTATIN CALCIUM 20 MG TABLET PO SCH (21:00)
[2019-09-29] VITALS: BP 178/68
[2019-09-29 04:00] VITALS: BP 153/73
[2019-09-29 07:00] VITALS: BP 160/68
[2019-09-29] MEDS: PANTOPRAZOLE SODIUM 40 MG TABLET.DR PO SCH (08:45)
[2019-09-29] MEDS: SODIUM BICARBONATE 650 MG TAB PO SCH ×2 (08:47→16:01)
[2019-09-29] MEDS: MYCOPHENOLATE MOFETIL 250 MG CAPSULE PO SCH (08:47)
[2019-09-29] MEDS: CARVEDILOL 25 MG TABLET PO SCH (08:48)
[2019-09-29] MEDS: FERROUS SULFATE 325 MG TABLET.DR PO SCH (08:48)
[2019-09-29] MEDS: BUSPIRONE HCL 5 MG TABLET PO SCH (08:49)
[2019-09-29] MEDS: FAMOTIDINE/PF 20 MG/2 ML VIAL IV SCH (08:49)
[2019-09-29] MEDS: TACROLIMUS 1 MG CAPSULE PO SCH (08:49)
[2019-09-29] MEDS: ASPIRIN 81 MG EC TAB PO SCH (08:50)
[2019-09-29] MEDS: NIFEDIPINE ER 30 MG TAB PO SCH (08:50)
[2019-09-29] MEDS: BUMETANIDE 1 MG TAB PO SCH (08:53)
[2019-09-29] MEDS: ***HM***(Brimonidine Tartrate/Timolol (Combigan Eye Drops) 5 ML) OP SCH (09:00)
[2019-09-29] MEDS: BIOTIN 5000 MCG PO SCH (09:00)
[2019-09-29] MEDS: CLONIDINE HCL 0.2 MG TABLET PO SCH (09:00)
[2019-09-29 11:00] VITALS: BP 144/66
[2019-09-29] MEDS ORDERED: CYAN250014 PO (14:41)
--- NOTE | 2019-09-29 15:26 | NUR ---
FLU VACCINE DECLINE VACCINE, STATES WAITING FOR DR. SOTO AND TRANSPLANT PHYSICIAN TO GIVE OK TO ADMINISTER INFLUENZA VACCINE. Addendum: 09/29/19 at 1532 by VIRA MADISON RN Amended: Links added.
--- NOTE | 2019-10-01 15:30 | NUR ---
discharged using teach back. dc.inst. given to pt. and dtr. both verbalize understanding.will follow up primary care
== END 2019-09-29 16:20 | disposition home or self-care (01) ==
LOC: EDH 22:36 → EDHIP 09-28 02:22 → 3BH 09-28 04:09
PROVIDERS: ADMIT Internal Medicine; ATTEND Internal Medicine
DX: D63.8 Anemia in other chronic diseases classified elsewhere (principal); I13.11 Hypertensive heart and chronic kidney disease without heart failure, with stage 5 chronic kidney disease, or end stage renal disease; E11.22 Type 2 diabetes mellitus with diabetic chronic kidney disease; N18.6 End stage renal disease; I45.2 Bifascicular block; K74.60 Unspecified cirrhosis of liver; Z94.4 Liver transplant status; F41.9 Anxiety disorder, unspecified; Z87.19 Personal history of other diseases of the digestive system; Z90.710 Acquired absence of both cervix and uterus; Z99.2 Dependence on renal dialysis; Z79.82 Long term (current) use of aspirin; Z79.899 Other long term (current) drug therapy; Z88.0 Allergy status to penicillin; Z88.2 Allergy status to sulfonamides; Z88.5 Allergy status to narcotic agent; Z91.048 Other nonmedicinal substance allergy status
CPT/HCPCS: 36415 ×2; 36430; 80053 ×2; 81001; 82270; 82607; 82746; 82948; 83090; 83735; 83921; 84484; 85025 ×2; 85610; 85730; 86850; 86900; 86901; 86922; 93005; 96374; 96375; 96376; 99284; G0378 ×37; J0360; J1756; J3490; J7507 ×2; J7517 ×3; P9016

== ENCOUNTER → 2019-11-28 | Outpatient (CLI) | payer OTHER ==
[~2019-11-28] MED LIST changes: -CHOL200074 PO; +CYAN250014 PO; -LATA7.5D OP; +SODI650T PO
== END | disposition home or self-care (01) ==
LOC: RAH 12:13
PROVIDERS: ATTEND Internal Medicine
DX: M19.042 Primary osteoarthritis, left hand (principal); M19.032 Primary osteoarthritis, left wrist; M85.88 Other specified disorders of bone density and structure, other site
CPT/HCPCS: 73110; 73130

== ENCOUNTER → 2020-01-01 | Outpatient (CLI) | payer OTHER | END | disposition home or self-care (01) | LOC: RAH 15:08 | PROVIDERS: ATTEND Internal Medicine | DX: Z12.31 Encounter for screening mammogram for malignant neoplasm of breast (principal) | CPT/HCPCS: 77067 ==

== ENCOUNTER → 2020-06-07 | Outpatient (CLI) | payer OTHER | END | disposition home or self-care (01) | LOC: RAH 09:48 | PROVIDERS: ATTEND Internal Medicine Transplant Hepatology | DX: R94.5 Abnormal results of liver function studies (principal); Z94.4 Liver transplant status | CPT/HCPCS: 76700; 93975 ==

== ENCOUNTER → 2021-02-05 | Outpatient (CLI) | payer OTHER ==
[~2021-02-05] MED LIST changes: -PANT40TA25 PO; +PANT40TA54 PO
== END | disposition home or self-care (01) ==
LOC: RAH 13:03
PROVIDERS: ATTEND Internal Medicine
DX: R22.42 Localized swelling, mass and lump, left lower limb (principal)
CPT/HCPCS: 93971

== ENCOUNTER → 2021-03-17 | Outpatient (CLI) | payer OTHER | END | disposition home or self-care (01) | LOC: RAH 10:32 | PROVIDERS: ATTEND Internal Medicine | DX: Z12.31 Encounter for screening mammogram for malignant neoplasm of breast (principal) | CPT/HCPCS: 77067 ==

== ENCOUNTER → 2021-04-09 | Outpatient (CLI) | payer OTHER | END | disposition home or self-care (01) | LOC: SHCH 11:26 | PROVIDERS: ATTEND Internal Medicine Cardiovascular Disease | DX: R01.1 Cardiac murmur, unspecified (principal) | CPT/HCPCS: 93306; 93356 ==

== ENCOUNTER → 2021-04-30 | Outpatient (CLI) | payer OTHER ==
[~2021-04-30] MED LIST changes: +AMLO-257 PO; +BENZ-70 PO; +FERR210T PO; +FLUC200T8 PO; +HYDR-4154 PO; +LOPE2TAB26 PO; +MYCO250C7 PO; +ONDA4TAB10 PO; +ZINC220T4 PO
== END | disposition home or self-care (01) ==
LOC: SHCH 11:17
PROVIDERS: ATTEND Internal Medicine Cardiovascular Disease
DX: R09.89 Other specified symptoms and signs involving the circulatory and respiratory systems (principal)
CPT/HCPCS: 93880

== ENCOUNTER 2021-08-14 10:59 | Inpatient (IN) | payer MEDICARE, OTHER ==
[~2021-08-14] VITALS: Ht 152.4 cm; Wt 66.9 kg
[~2021-08-14 10:59] MED LIST changes: -AMLO-257 PO; -BENZ-70 PO; -FERR210T PO; -FLUC200T8 PO; -HYDR-4154 PO; -LOPE2TAB26 PO; -MYCO250C7 PO; -ONDA4TAB10 PO; -ZINC220T4 PO
[2021-08-14 12:00] LABS: BASOPHILS % (AUTO) 0.2 % (0.0-5.0); EOSINOPHILS % (AUTO) 0.9 % (0.0-8.0); HEMATOCRIT 22.3 % (36-48); LYMPHOCYTES % (AUTO) 4.3 % (21.0-51.0); MEAN CORPUSCULAR HEMOGLOBIN 31.9 pg (27.0-33.0); MEAN CORPUSCULAR HGB CONC 32.3 g/dL (32.0-36.0); MEAN CORPUSCULAR VOLUME 98.7 fL (79-99); MONOCYTES % (AUTO) 7.2 % (3.0-13.0); NEUTROPHILS % (AUTO) 82.3 % (40.0-77.0); NUCLEATED RED BLOOD CELLS 0.4 % (0.0-0.19); PLATELET COUNT (AUTO) 241 K/uL (130-400); RED BLOOD CELL COUNT(AUTO) 2.26 MIL/uL (4.00-5.50); RED CELL DISTRIBUTION WIDTH 17.2 % (11.0-15.5); WHITE BLOOD COUNT (AUTO) 5.5 K/uL (4.8-10.8)
[2021-08-14 12:09] LABS: CREATININE 4.9 mg/dL (0.5-1.5); POTASSIUM 3.9 mmol/L (3.5-5.1)
[2021-08-14 12:12] LABS: INR 1.09 (0.85-1.15); PROTHROMBIN TIME 11.8 SEC (9.6-11.6)
[2021-08-14 12:14] LABS: ALBUMIN 3.2 g/dL (3.5-5.0); BILIRUBIN,TOTAL 0.4 mg/dL (0.2-1.0); TOTAL PROTEIN, SERUM 6.2 g/dL (6.0-8.3)
[2021-08-14] MEDS ORDERED: LEVOFLOXACIN 500 MG/D5W 100 ML 100 ML IV SCH (18:30)
[2021-08-14] MEDS ORDERED: VANCOMYCIN 1G VIAL IVPB ONE (20:00)
[2021-08-14] MEDS ORDERED: 0.9% NACL 250ML IVPB ONE (20:00)
[2021-08-14] MEDS ORDERED: LACTULOSE 20 GM/30 ML UDCUP PO PRN (20:30)
[2021-08-14] MEDS ORDERED: ONDANSETRON 4MG INJ IV PRN (20:30)
[2021-08-14] MEDS ORDERED: HYDRALAZINE 20MG/ML VIAL IV PRN (20:30)
[2021-08-14] MEDS ORDERED: NITROGLYCERIN 0.4 MG SL TAB SL PRN (20:30)
[2021-08-14] MEDS ORDERED: ACETAMINOPHEN 325 MG TAB PO PRN ×2 (20:30)
[2021-08-14 20:46] LABS: ABG HCO3 25.1 mmol/L (21.0-28.0); ABG PCO2 38 mmHg (32-45)
[2021-08-14] MEDS: INSULIN HUMULIN R 100 UNIT/ML 3ML SQ SCH (21:00)
[2021-08-14] MEDS: CARVEDILOL 3.125 MG TABLET PO SCH (21:00)
[2021-08-14 21:38] LABS: HEMOGLOBIN A1C 6.8 % (4.0-6.0)
[2021-08-14] MEDS: DEXAMETHASONE SOD PHOSPHATE 4 MG/ML 1ML VIAL IVP SCH (21:48)
[2021-08-14] MEDS: HEPARIN 5,000 UNIT VIAL SQ SCH (21:48)
[2021-08-14] MEDS ORDERED: CARV25TA PO (23:54)
[2021-08-14] MEDS ORDERED: BUME0.5T4 PO (23:54)
[2021-08-14] MEDS ORDERED: AMLO-257 PO (23:54)
[2021-08-14] MEDS ORDERED: MYCO250C7 PO (23:54)
[2021-08-14] MEDS ORDERED: BUSP10TA3 PO (23:54)
[2021-08-14] MEDS ORDERED: ONDA4TAB10 PO (23:54)
[2021-08-14] MEDS ORDERED: FERR-82 PO (23:54)
[2021-08-14] MEDS ORDERED: ROSU10TA28 PO (23:54)
[2021-08-14] MEDS ORDERED: HYDR-4154 PO (23:54)
[2021-08-15] VITALS (13 sets, daily range): BP systolic 115–145; BP diastolic 50–61
[2021-08-15] MEDS ORDERED: LOPE2TAB26 PO (01:25)
[2021-08-15] MEDS ORDERED: ZINC220T4 PO (01:25)
[2021-08-15] MEDS ORDERED: FLUC200T8 PO (01:25)
[2021-08-15] MEDS ORDERED: TACR1CAP10 PO (01:25)
[2021-08-15] MEDS ORDERED: FERR210T PO (01:25)
[2021-08-15] MEDS ORDERED: BRIM5DRO OP (01:25)
[2021-08-15] MEDS ORDERED: PANT40TA54 PO (01:25)
[2021-08-15] MEDS ORDERED: BENZ-70 PO (01:25)
[2021-08-15] MEDS ORDERED: PHARMACY COMMUNICATION MISC SCH (07:30)
[2021-08-15] MEDS: INSULIN HUMULIN R 100 UNIT/ML 3ML SQ SCH ×4 (07:30→21:00)
[2021-08-15] MEDS: AMLODIPINE 5 MG TAB PO SCH (08:50)
[2021-08-15] MEDS: CARVEDILOL 3.125 MG TABLET PO SCH ×2 (08:50→21:54)
[2021-08-15] MEDS: HEPARIN 5,000 UNIT VIAL SQ SCH ×3 (08:50→21:55)
[2021-08-15] MEDS: PANTOPRAZOLE 40 MG TAB DR PO SCH (08:50)
[2021-08-15] MEDS: TIMOLOL OP SCH ×2 (09:00→21:56)
[2021-08-15] MEDS ORDERED: BUMETANIDE 1 MG TAB PO SCH (09:00)
[2021-08-15] MEDS: BRIMONIDINE TARTRATE OP SCH ×2 (09:00→21:56)
[2021-08-15] MEDS: FLUCONAZOLE 100 MG TAB PO SCH (09:02)
[2021-08-15] MEDS: BUSPIRONE HCL 5 MG TABLET PO SCH ×2 (09:02→21:53)
[2021-08-15] MEDS ORDERED: EPOETIN ALFA-EPBX (ESRD) 10,000 UNIT/ML VIAL SQ SCH (10:00)
[2021-08-15] MEDS: TACROLIMUS 1 MG CAPSULE PO SCH ×2 (10:32→21:54)
[2021-08-15] MEDS: MYCOPHENOLATE MOFETIL 250 MG CAPSULE PO SCH ×2 (10:32→21:54)
[2021-08-15] MEDS: HYDRALAZINE 25MG TABLET PO SCH ×3 (10:36→21:54)
[2021-08-15] MEDS: FERRIC CITRATE 210 MG PO SCH ×2 (12:07→17:51)
[2021-08-15] MEDS: CEFEPIME HCL 1 GM VIAL IVP SCH (14:12)
[2021-08-15] MEDS ORDERED: GUAIFENESIN SUGAR-FREE 100 MG/5 ML UDCUP ONE (14:17)
[2021-08-15] MEDS ORDERED: 0.9%NACL 1000ML 1,000 ML IV PRN (15:30)
[2021-08-15] MEDS ORDERED: HEPARIN 5,000 UNIT VIAL IJ PRN (15:30)
[2021-08-15] MEDS: DEXAMETHASONE SOD PHOSPHATE 4 MG/ML 1ML VIAL IVP SCH (20:27)
[2021-08-15] MEDS: ATORVASTATIN 20 MG TABLET PO SCH (21:54)
[2021-08-15] MEDS: GUAIFENESIN SUGAR-FREE 100 MG/5 ML UDCUP PO PRN (22:55)
[2021-08-16] VITALS (16 sets, daily range): BP systolic 105–148; BP diastolic 48–76
[2021-08-16] MEDS: GUAIFENESIN SUGAR-FREE 100 MG/5 ML UDCUP PO PRN ×2 (04:19→21:08)
[2021-08-16 04:43] LABS: BASOPHILS % (AUTO) 0.2 % (0.0-5.0); LYMPHOCYTES % (AUTO) 3.6 % (21.0-51.0); MEAN CORPUSCULAR HEMOGLOBIN 31.4 pg (27.0-33.0); MEAN CORPUSCULAR HGB CONC 32.6 g/dL (32.0-36.0); MEAN CORPUSCULAR VOLUME 96.2 fL (79-99); MONOCYTES % (AUTO) 5.3 % (3.0-13.0); NEUTROPHILS % (AUTO) 85.8 % (40.0-77.0); NUCLEATED RED BLOOD CELLS 0.8 % (0.0-0.19); PLATELET COUNT (AUTO) 261 K/uL (130-400); RED BLOOD CELL COUNT(AUTO) 2.39 MIL/uL (4.00-5.50); RED CELL DISTRIBUTION WIDTH 16.5 % (11.0-15.5); WHITE BLOOD COUNT (AUTO) 5.3 K/uL (4.8-10.8)
[2021-08-16 04:59] LABS: ALBUMIN 2.8 g/dL (3.5-5.0); BILIRUBIN,TOTAL 0.4 mg/dL (0.2-1.0); CREATININE 3.9 mg/dL (0.5-1.5); POTASSIUM 4.1 mmol/L (3.5-5.1); TOTAL PROTEIN, SERUM 5.9 g/dL (6.0-8.3)
[2021-08-16] MEDS: INSULIN HUMULIN R 100 UNIT/ML 3ML SQ SCH ×4 (05:44→20:46)
[2021-08-16] MEDS: HYDRALAZINE 25MG TABLET PO SCH ×3 (08:56→20:41)
[2021-08-16] MEDS: FLUCONAZOLE 100 MG TAB PO SCH (08:56)
[2021-08-16] MEDS: PANTOPRAZOLE 40 MG TAB DR PO SCH (08:56)
[2021-08-16] MEDS: BUSPIRONE HCL 5 MG TABLET PO SCH ×2 (08:57→20:40)
[2021-08-16] MEDS: AMLODIPINE 5 MG TAB PO SCH (08:57)
[2021-08-16] MEDS: TACROLIMUS 1 MG CAPSULE PO SCH ×2 (08:57→20:40)
[2021-08-16] MEDS: MYCOPHENOLATE MOFETIL 250 MG CAPSULE PO SCH ×2 (08:57→20:40)
[2021-08-16] MEDS: CARVEDILOL 3.125 MG TABLET PO SCH ×2 (08:57→20:46)
[2021-08-16] MEDS: HEPARIN 5,000 UNIT VIAL SQ SCH ×3 (08:58→21:02)
[2021-08-16] MEDS: FERRIC CITRATE 210 MG PO SCH ×3 (08:59→16:22)
[2021-08-16] MEDS: TIMOLOL OP SCH ×2 (08:59→21:01)
[2021-08-16] MEDS: BRIMONIDINE TARTRATE OP SCH ×2 (08:59→21:01)
[2021-08-16] MEDS: CEFEPIME HCL 1 GM VIAL IVP SCH (12:07)
[2021-08-16] MEDS ORDERED: LEVOFLOXACIN 500 MG/D5W 100 ML 100 ML IV SCH (18:00)
[2021-08-16] MEDS ORDERED: HEPARIN 5,000 UNIT VIAL IJ ONE (19:00)
[2021-08-16] MEDS: ATORVASTATIN 20 MG TABLET PO SCH (20:40)
[2021-08-16] MEDS: DEXAMETHASONE SOD PHOSPHATE 4 MG/ML 1ML VIAL IVP SCH (21:01)
[2021-08-17 00:06] VITALS: BP 121/47
[2021-08-17 04:17] VITALS: BP 131/54
[2021-08-17 04:41] LABS: BASOPHILS % (AUTO) 0.1 % (0.0-5.0); HEMATOCRIT 22.4 % (36-48); LYMPHOCYTES % (AUTO) 2.2 % (21.0-51.0); MEAN CORPUSCULAR HEMOGLOBIN 32.3 pg (27.0-33.0); MEAN CORPUSCULAR HGB CONC 33.5 g/dL (32.0-36.0); MEAN CORPUSCULAR VOLUME 96.6 fL (79-99); MONOCYTES % (AUTO) 4.9 % (3.0-13.0); NEUTROPHILS % (AUTO) 89.4 % (40.0-77.0); NUCLEATED RED BLOOD CELLS 0.4 % (0.0-0.19); PLATELET COUNT (AUTO) 264 K/uL (130-400); RED BLOOD CELL COUNT(AUTO) 2.32 MIL/uL (4.00-5.50); RED CELL DISTRIBUTION WIDTH 16.8 % (11.0-15.5); WHITE BLOOD COUNT (AUTO) 9.5 K/uL (4.8-10.8)
[2021-08-17 04:59] LABS: ALBUMIN 2.7 g/dL (3.5-5.0); BILIRUBIN,TOTAL 0.5 mg/dL (0.2-1.0); CRP QUANTITATIVE 20.4 mg/L (0.00-9.0); POTASSIUM 3.7 mmol/L (3.5-5.1); TOTAL PROTEIN, SERUM 5.7 g/dL (6.0-8.3)
[2021-08-17] MEDS: INSULIN HUMULIN R 100 UNIT/ML 3ML SQ SCH ×2 (05:58→11:18)
[2021-08-17 08:00] VITALS: BP 137/55
[2021-08-17] MEDS: FERRIC CITRATE 210 MG PO SCH ×3 (08:00→13:30)
[2021-08-17] MEDS: CARVEDILOL 3.125 MG TABLET PO SCH (08:32)
[2021-08-17] MEDS: BUSPIRONE HCL 5 MG TABLET PO SCH (08:32)
[2021-08-17] MEDS: TACROLIMUS 1 MG CAPSULE PO SCH (08:33)
[2021-08-17] MEDS: MYCOPHENOLATE MOFETIL 250 MG CAPSULE PO SCH (08:33)
[2021-08-17] MEDS: HYDRALAZINE 25MG TABLET PO SCH ×2 (08:33→14:51)
[2021-08-17] MEDS: HEPARIN 5,000 UNIT VIAL SQ SCH (08:34)
[2021-08-17] MEDS: PANTOPRAZOLE 40 MG TAB DR PO SCH (08:34)
[2021-08-17] MEDS: AMLODIPINE 5 MG TAB PO SCH (08:35)
[2021-08-17] MEDS: FLUCONAZOLE 100 MG TAB PO SCH (08:35)
[2021-08-17] MEDS: BRIMONIDINE TARTRATE OP SCH (08:56)
[2021-08-17] MEDS: TIMOLOL OP SCH (08:56)
[2021-08-17] MEDS: GUAIFENESIN SUGAR-FREE 100 MG/5 ML UDCUP PO PRN (11:18)
[2021-08-17 11:48] VITALS: BP 132/59
[2021-08-17] MEDS: CEFEPIME HCL 1 GM VIAL IVP SCH (14:50)
[2021-08-17 19:09] LABS: HEPATITIS Bs ANTIGEN SCREEN P Negative (Negative)
[2021-08-17] MEDS ORDERED: HEPARIN 5,000 UNIT VIAL SQ SCH (21:00)
== END 2021-08-17 16:00 | disposition home or self-care (01) | DRG 871 ==
LOC: EDH 10:59 → EDHIP 20:03 → 2AH 08-15 20:54
PROVIDERS: ADMIT Internal Medicine; ATTEND Internal Medicine
PROC: 5A1D70Z Performance of Urinary Filtration, Intermittent, Less than 6 Hours Per Day (ICD-10-PCS; principal; 2021-08-15)
PROC: 5A1D70Z Performance of Urinary Filtration, Intermittent, Less than 6 Hours Per Day (ICD-10-PCS; 2021-08-16)
DX: A41.89 Other specified sepsis (principal); U07.1 COVID-19; J12.82 Pneumonia due to coronavirus disease 2019; J96.00 Acute respiratory failure, unspecified whether with hypoxia or hypercapnia; N18.6 End stage renal disease; E87.1 Hypo-osmolality and hyponatremia; I12.0 Hypertensive chronic kidney disease with stage 5 chronic kidney disease or end stage renal disease; Z94.4 Liver transplant status; E11.22 Type 2 diabetes mellitus with diabetic chronic kidney disease; E87.70 Fluid overload, unspecified; E78.5 Hyperlipidemia, unspecified; D64.9 Anemia, unspecified; E78.00 Pure hypercholesterolemia, unspecified; Y95 Nosocomial condition; Z99.2 Dependence on renal dialysis; Z98.41 Cataract extraction status, right eye; Z98.42 Cataract extraction status, left eye; Z88.5 Allergy status to narcotic agent; Z88.0 Allergy status to penicillin; Z88.2 Allergy status to sulfonamides; Z88.8 Allergy status to other drugs, medicaments and biological substances; Z90.710 Acquired absence of both cervix and uterus; Z83.3 Family history of diabetes mellitus; Z82.5 Family history of asthma and other chronic lower respiratory diseases; Z82.3 Family history of stroke; Z82.0 Family history of epilepsy and other diseases of the nervous system; Z82.49 Family history of ischemic heart disease and other diseases of the circulatory system; Z80.0 Family history of malignant neoplasm of digestive organs; Z80.8 Family history of malignant neoplasm of other organs or systems
CPT/HCPCS: 36415; 36600; 71045; 80053; 82803; 82948; 83036; 83880; 84145; 84443; 84484; 85025; 85378; 85610; 86140; 86704; 86706; 86850; 86900; 86901; 87040; 87340; 87635; 87804; 90935; 93005; 93970; 94760; C9803; G0378; J0692; J1100; J1644; J1815; J1956; J7507; J7517